=== PATIENT | male | born 1950 | race Caucasian/White ===

== ENCOUNTER 2020-08-12 10:54 | Outpatient (CLI) | payer MEDICARE, OTHER, SELFPAY ==
[2020-08-12 11:33] LABS: Alanine Aminotransferase 24 U/L (4-50); Albumin Level 4.3 g/dL (3.5-5.1); Alkaline Phosphatase 68 U/L (38-126); Anion Gap 5 mmol/L (8-16); Aspartate Amino Transferase 25 U/L (17-59); Bilirubin,Total 0.7 mg/dL (0.2-1.3); Blood Urea Nitrogen 17 mg/dL (9-20); Calcium 9.2 mg/dL (8.4-10.2); Carbon Dioxide 29 mmol/L (22-30); Chloride 102 mmol/L (98-107); Estimated Glomerular Filt Rate 60; Glucose 108 mg/dL (75-110); Magnesium 2.3 mg/dL (1.6-2.3); Potassium 4.5 mmol/L (3.4-5.0); Sodium 136 mmol/L (137-145)
== END 2020-08-12 10:55 | disposition home or self-care (01) ==
LOC: ANHLAB 10:58
PROVIDERS: PCP Family Medicine; Visit Provider Internal Medicine Cardiovascular Disease
DX: I48.0 Paroxysmal atrial fibrillation (principal)
CPT/HCPCS: 36415; 80053; 83735

== ENCOUNTER 2020-11-29 13:42 | Emergency (ER) | payer MEDICARE, OTHER, SELFPAY ==
--- NOTE | ~2020-11-29 | CT_ITS ---
EXAMINATION:CT chest w con DATE: 11/29/2020 16:38 INDICATION: Left hilar mass. Abnormal chest radiograph. COVID-19 positive. TECHNIQUE: Computed tomography (CT) of the chest was performed with 75 mL Omnipaque 350 intravenous c ontrast. Automated exposure control and iterative reconstruction technique were employed. The dose-le ngth product (DLP) was 407.80 mGy-cm. COMPARISON: Chest single view 11/29/2020, PET/CT 03/27/2008 FINDINGS: There are patchy groundglass and airspace opacities scattered in the lungs involving all lo bes. No pleural effusion. The heart size is normal. No pericardial effusion. There are coronary arter y calcifications. There is mild mediastinal lymphadenopathy, likely reactive. There is no abnormal le ft hilar mass. There is mild thoracic spondylosis. IMPRESSION: 1. Multifocal lung disease, consistent with COVID-19 pneumonia. Reviewed, dictated and finalized at location A. 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
--- NOTE | ~2020-11-29 | XR_ITS ---
XR chest 1V portable 11/29/2020 15:16 Indication: Chest palpitations. Hypertension. Covid. Procedure: AP portable chest Comparison: Comparison to multiple prior studies sequentially, with oldest reviewed study dated 02/2009. Findings: Heart size normal. There is masslike density overlying the left hilum. No edema, pleural ef fusion or pneumothorax. No acute osseous abnormality. Impression: 1: Masslike density overlying the left hilum which is new compared with prior study. This may be an i nfectious/inflammatory process, although neoplasm is not excluded. Consider correlation with CT chest with contrast. Reviewed, dictated and finalized at location A. CVOR Impression: 1: Masslike density overlying the left hilum which is new compared with prior s tudy. This may be an infectious/inflammatory process, although neoplasm is not excluded. Consider correlation with CT chest with contrast.
[2020-11-29 13:46] VITALS: BP 150/100; PULSE 110; RESP 97; TEMP 36.4; O2SAT 97
--- NOTE | 2020-11-29 13:51 | ECG_ITS ---
Measurements Intervals [place] Rate: 101 P: OR: 0 QRS: 21 QRSD: 95 T: 35 QT: 327 QTc: 424 Interpretive Statements ATRIAL FIBRILLATION WITH RAPID VENTRICULAR RESPONSE NONSPECIFIC ST & T-WAVE ABNORMALITY- INF/LAT LEADS BASELINE ARTIFACT- I, II, AVR, AVF, V5-V6 ABNORMAL ECG Electronically Signed On 11-29-2020 14:00:47 MUD GRINDER by Surya Lombardi D.O.
[2020-11-29 14:53] VITALS: BP 133/67; PULSE 93; RESP 18; O2SAT 97
--- NOTE | 2020-11-29 14:56 | ED.ARRPALP ---
HPI - Arrhythmia/Palpitations General Chief Complaint: Arrhythmia/Palpitations Stated Complaint: covid +, afib Time Seen by Provider: 11/29/20 14:55 Source: patient Mode of arrival: ambulatory Limitations: no limitations History of Present Illness HPI narrative: Patient complaining of irregular heart rate and palpitations, h/o afib. Patient states that he was diagnosed with Covid this past week. Patient states that he would get short of breath on exertion but currently denies being short of breath. Patient denies any chest pain, abdominal pain, nausea, vomiting, diarrhea, fever or chills. MD complaint: irregular heart beat and atrial fibrillation Related Data Home Medications Medication Instructions Recorded Confirmed pantoprazole 40 mg PO HS 11/10/19 08/12/20 tamsulosin 0.4 mg PO HS 11/10/19 08/12/20 amlodipine 5 mg tablet 5 mg PO DAILY 03/13/20 08/12/20 Allergies Allergy/AdvReac Type Severity Reaction Status Date / Time No Known Allergies Allergy Unknown Verified 08/12/20 10:04 Review of Systems Review of Systems: All systems reviewed & are unremarkable except as noted in HPI and below Constitutional: Constitutional: Denies body ache(s), Denies chills, Denies excessive sweating, Denies fatigue, Denies fever(s), Denies headache(s), Denies lethargy, Denies malaise, Denies weakness and Denies weight loss Eyes: Eyes: Denies blurry vision, Denies change in vision and Denies loss of vision ENT: Denies dizziness, Denies ear discharge, Denies headache(s), Denies lip swelling, Denies epistaxis, Denies nasal congestion, Denies neck pain, Denies throat swelling and Denies tongue swelling Cardiovascular: Cardiovascular: Denies chest pain, Denies chest pain at rest, Denies chest pain with activity, Denies diaphoresis, Denies rapid heart rate, Denies edema, Denies lightheadedness, Denies dyspnea and Denies dyspnea on exertion Respiratory: Respiratory: Denies chest congestion, Denies cough, Denies hemoptysis, Denies dyspnea and Denies dyspnea on exertion Gastrointestinal: Gastrointestinal: Denies abdominal pain, Denies melena, Denies hematochezia, Denies diarrhea, Denies nausea, Denies vomiting and Denies hematemesis Musculoskeletal: Musculoskeletal: Denies abnormal gait, Denies deformity, Denies joint swelling, Denies limited range of motion, Denies neck pain and Denies numbness Neurologic: Denies Abnormal speech present, Denies abnormal gait, Denies confusion, Denies dizziness, Denies headache(s), Denies focal weakness, Denies loss of vision, Denies numbness, Denies Other visual disturbances, Denies Sensory deficit (Neuro) and Denies weakness Psychiatric: Psychiatric: Denies confusion, Denies depression, Denies auditory hallucinations, Denies homicidal ideation and Denies suicidal ideation Endocrine: Endocrine: Denies cold intolerance, Denies excessive sweating, Denies fatigue, Denies heat intolerance and Denies palpitations Hematologic/Lymphatic: Hematologic/Lymphatic: Denies easy bleeding and Denies easy bruising Allergic/Immunologic: Allergic/Immunologic: Denies lip swelling, Denies throat swelling and Denies tongue swelling PMFSH Past Medical History Medical History Afib GERD (gastroesophageal reflux disease) HTN (hypertension) Hyperlipidemia Osteoarthritis Surgical History Surgical History History of cardiac cath History of hernia repair History of shoulder surgery Social History Social History Smoking status: Never smoker Gender identity (if verbalized by the patient): Male Exam Const: General: cooperative, healthy appearing, comfortable, no acute distress, well developed, alert and awake; No confusion Orientation/consciousness: oriented to person, oriented to place, oriented to time, patient oriented x3 and No confusion Limitations: no ramey
[2020-11-29 15:19] VITALS: BP 133/71; PULSE 110; RESP 17; O2SAT 96
[2020-11-29 15:21] LABS: Basophils Percent Auto 0.2 % (0.2-1.2); Hematocrit 45.9 % (42.0-52.0); Hemoglobin 15.8 g/dL (14.0-18.0); Immature Granulocyte Absolute 0.01 K/mm3 (0.00-0.031); Immature Granulocyte Percent A 0.2 % (0-0.5); Immature Platelet Fraction Pct 3.1 % (0.9-11.2); Lymphocytes Absolute Auto 0.72 K/mm3 (0.9-3.2); Lymphocytes Percent Auto 15.6 % (18.3-44.2); Mean Corpuscular HGB Conc 34.4 g/dl (32-36); Mean Corpuscular Hemoglobin 31.2 pg (26-34); Mean Corpuscular Volume 90.7 fl (80-100); Mean Platelet Volume 9.3 fl (7.4-10.4); Monocytes Absolute Auto 0.6 K/mm3 (0.1-0.6); Monocytes Percent Auto 12.3 % (2.6-8.5); Neutrophils Absolute Auto 3.3 K/mm3 (1.3-6.7); Neutrophils Percent Auto 71.7 % (45.5-73.1); Platelet Count Result 129 k/mm3 (150-375); Red Blood Count 5.06 M/mm3 (4.6-6.20); Red Cell Distribution Width 13.1 % (11.5-14.5); White Blood Count 4.6 K/mm3 (4.5-10.0)
[2020-11-29 15:29] LABS: INR 1.7; Prothrombin Time 20.6 Seconds (11.1-14.7)
[2020-11-29 15:30] LABS: Partial Thromboplastin Time 45.2 SECONDS (22.3-36.8)
[2020-11-29 15:35] LABS: Anion Gap 9 mmol/L (8-16); Blood Urea Nitrogen 17 mg/dL (9-20); Calcium 8.4 mg/dL (8.4-10.2); Carbon Dioxide 25 mmol/L (22-30); Chloride 102 mmol/L (98-107); Estimated CRCL calculation 58 ml/min; Estimated Glomerular Filt Rate 55; Glucose 144 mg/dL (75-110); Potassium 3.8 mmol/L (3.4-5.0); Sodium 136 mmol/L (137-145)
[2020-11-29 15:47] LABS: NT Pro B Type Natriuretic Pept 1300 PG/ML (5-100); Troponin I < 0.012 ng/mL (0.000-0.034)
[2020-11-29 16:50] VITALS: BP 136/88; PULSE 99; RESP 16; O2SAT 100
[2020-11-29] MEDS: dilTIAZem HCl INJ 25 MG/5 ML VIAL 10 MG IV PUSH (17:53)
[2020-11-29 18:50] VITALS: BP 142/88; PULSE 92; RESP 18; O2SAT 100
== END 2020-11-29 19:16 | disposition home or self-care (01) ==
PROVIDERS: Emergency Provider Emergency Medicine; PCP Family Medicine
DX: U07.1 COVID-19 (principal); J12.82 Pneumonia due to coronavirus disease 2019; I48.91 Unspecified atrial fibrillation; K21.9 Gastro-esophageal reflux disease without esophagitis; I10 Essential (primary) hypertension; E78.5 Hyperlipidemia, unspecified; M19.90 Unspecified osteoarthritis, unspecified site; R94.31 Abnormal electrocardiogram [ECG] [EKG]
CPT/HCPCS: 36415; 71045; 71260; 80048; 83880; 84443; 84484; 85025; 85055; 85610; 85730; 93005; 96374; 96375; 99284; J1100; Q9967

== ENCOUNTER 2022-08-06 09:38 | Outpatient (CLI) | payer MEDICARE, OTHER, SELFPAY ==
[2022-08-06 10:46] LABS: Hematocrit 40.5 % (42.0-52.0); Hemoglobin 13.1 g/dL (14.0-18.0); Immature Platelet Fraction Pct 2.4 % (0.9-11.2); Mean Corpuscular HGB Conc 32.3 g/dl (32-36); Mean Corpuscular Hemoglobin 30.9 pg (26-34); Mean Corpuscular Volume 95.5 fl (80-100); Mean Platelet Volume 9.2 fl (7.4-10.4); Platelet Count Result 155 k/mm3 (150-375); Red Blood Count 4.24 M/mm3 (4.6-6.20); Red Cell Distribution Width 13.7 % (11.5-14.5); White Blood Count 5.2 K/mm3 (4.5-10.0)
[2022-08-06 11:30] LABS: Iron 81 ug/dL (49-181)
[2022-08-06 11:39] LABS: Percent Iron Saturation 24 % (20-50)
== END 2022-08-06 09:39 | disposition home or self-care (01) ==
LOC: ANHLAB 09:41
PROVIDERS: PCP Family Medicine; Visit Provider Nurse Practitioner
DX: K62.5 Hemorrhage of anus and rectum (principal); K31.819 Angiodysplasia of stomach and duodenum without bleeding; R53.83 Other fatigue
CPT/HCPCS: 36415; 82728; 83540; 83550; 85027; 85055

== ENCOUNTER 2022-09-15 00:31 | Day surgery (SDC) | payer MEDICARE, OTHER, SELFPAY ==
[2022-09-07 14:26] VITALS: BMI 29.6
[2022-09-15] VITALS (7 sets, daily range): BP systolic 71–139; BP diastolic 42–66; PULSE 52–119; RESP 17–32; TEMP 36.1; O2SAT 96–100; BMI 28.9
[2022-09-15] MEDS: LACTATED RINGERS 1,000 ML 150 ML IV CONT (12:21)
--- NOTE | 2022-09-15 12:25 | P.PNAN_ITS ---
Anes - Initial Pre Proc Eval Procedure: Operation Date: 09/15/22 13:30 Proposed Procedures p Esophagogastroduodenoscopy & Colonoscopy - Jeronimo Dumont MD Date/Time: 09/15/22 12:25 Surgeon: Jeronimo Dumont MD Pre Op Diagnosis: GAVE, GERD, Rectal bleeding Patient Data Age: 71 Gender: M Height: 1.75 m Weight: 88.8 kg Last Vital Signs Temp 36.1 C L 09/15/22 12:00 Pulse 67 09/15/22 12:00 Resp 18 09/15/22 12:00 BP 139/55 L 09/15/22 12:00 Pulse Ox 100 09/15/22 12:00 O2 Del Method Room Air 09/15/22 12:00 Allergies Allergy/AdvReac Type Severity Reaction Status Date / Time No Known Allergies Allergy Unknown Verified 09/15/22 12:07 Home Medications Medication Instructions Recorded Confirmed Type pantoprazole 40 mg tablet,delayed 40 mg PO DAILY 11/10/19 09/15/22 History release tamsulosin 0.4 mg capsule 0.4 mg PO HS 11/10/19 09/15/22 History amlodipine 5 mg tablet 5 mg PO DAILY 03/13/20 09/15/22 History pravastatin 20 mg tablet 20 mg PO DAILY 02/03/21 09/15/22 History lisinopril 20 mg tablet 20 mg PO BID 09/07/22 09/15/22 History rivaroxaban 20 mg tablet (Xarelto) 20 mg PO QAM 09/07/22 09/15/22 History sotalol 80 mg tablet 80 mg PO BID 09/07/22 09/15/22 History Patient hx anesthesia problems: none Family hx anesthesia problems: none Results Review: All pre-operative results and documents have been reviewed as part of the pre- operative evaluation. [facility] Past Medical History Medical History Afib GAVE (gastric antral vascular ectasia) GERD (gastroesophageal reflux disease) GERD (gastroesophageal reflux disease) HTN (hypertension) Hx of adenomatous colonic polyps Hyperlipidemia Hypertension Obesity Osteoarthritis Paroxysmal A-fib Prostate cancer Surgical History Surgical History History of cardiac cath History of hernia repair History of shoulder surgery Social History Social History Smoking status: Never smoker Alcohol intake: former Substance use: never Substance use type: does not use Living arrangements: with family Gender identity (if verbalized by the patient): Male Spiritual care concerns: No Anes - Eval Final PreProcedure Day of Procedure 09/15/22 12:25 Patient weight: overweight Heart: regular rate and rhythm Lungs: clear to auscultation Airway: Mallampati scale class II Neurological: alert and oriented Last oral intake: >/= 8 hours ASA classification: III Emergent: no Anesthetic plan: proceed Anesthesia type and monitoring: general GIVS and standard monitoring Results Review: All pre-operative results and documents have been reviewed as part of the pre-operative evaluation. Informed Consent: The patient's anesthetic plan and its attendant risks and benefits were discussed with the patient/family/POA. Questions were solicited and answers provided to the satisfaction of the patient/family/POA.
--- NOTE | 2022-09-15 13:05 | PM.HPGS ---
History of Present Illness History of Present Illness Consent: Risks, benefits, and alternatives have been discussed and questions answered. Patient agrees to proceed with procedure. Chief complaint: GAVE, GERD, Rectal bleeding Narrative: Andre Mas is a 71 year old male Presents for colonoscopy and EGD. Patient is legally blind. Patient has a history of prostate carcinoma status post treatment with radiation therapy. He has noticed bright red blood per rectum intermittently this year. Patient does have a prior history of colonoscopy that showed colon polyps. Previously followed by Dr. Viri ivy. Patient was found to be anemic in 2018. At that time he also had EGD that revealed gastric antral vascular ectasias that were cauterized. Patient presents today for follow-up because of rectal bleeding. Review of Systems Review of Systems: Review of systems noncontributory. [facility] Past Medical History Medical History Afib GAVE (gastric antral vascular ectasia) GERD (gastroesophageal reflux disease) GERD (gastroesophageal reflux disease) HTN (hypertension) Hx of adenomatous colonic polyps Hyperlipidemia Hypertension Obesity Osteoarthritis Paroxysmal A-fib Prostate cancer Surgical History Surgical History History of cardiac cath History of hernia repair History of shoulder surgery Social History Social History Smoking status: Never smoker Alcohol intake: former Substance use: never Substance use type: does not use Living arrangements: with family Gender identity (if verbalized by the patient): Male Spiritual care concerns: No Meds Home Medications and Allergies Home Medications Medication Instructions Recorded Confirmed Type pantoprazole 40 mg tablet,delayed 40 mg PO DAILY 11/10/19 09/15/22 History release tamsulosin 0.4 mg capsule 0.4 mg PO HS 11/10/19 09/15/22 History amlodipine 5 mg tablet 5 mg PO DAILY 03/13/20 09/15/22 History pravastatin 20 mg tablet 20 mg PO DAILY 02/03/21 09/15/22 History lisinopril 20 mg tablet 20 mg PO BID 09/07/22 09/15/22 History rivaroxaban 20 mg tablet (Xarelto) 20 mg PO QAM 09/07/22 09/15/22 History sotalol 80 mg tablet 80 mg PO BID 09/07/22 09/15/22 History Allergies Allergy/AdvReac Type Severity Reaction Status Date / Time No Known Allergies Allergy Unknown Verified 09/15/22 12:07 Vital Signs Vital Signs - 24 hr 09/15/22 12:00 Temperature 97.0 F L Pulse Rate 67 Respiratory Rate 18 Blood Pressure 139/55 L Pulse Oximetry 100 Oxygen Delivery Room Air Exam Narrative: Physical exam reveals patient be alert. Vital signs stable. HEENT exam reveals poor vision. Lungs are clear. Heart without murmur. Abdomen bowel sounds present soft nontender with no organomegaly. Digital external rectal exam is normal. Assessment and Plan Assessment and plan (1) Rectal bleeding: Code(s): K62.5 - Hemorrhage of anus and rectum Status: Acute Assessment and Plan: Rectal bleeding may be aggravated by anticoagulation. Patient known to have internal hemorrhoids. Previous radiation therapy for prostate potentially could cause proctitis. Plan is for colonoscopy to of assess more thoroughly. (2) GERD (gastroesophageal reflux disease): Code(s): K21.9 - Gastro-esophageal reflux disease without esophagitis Status: Acute Assessment and Plan: Patient is stable on current therapy currently on pantoprazole 40mg p.o. daily EGD requested will be performed. (3) GAVE (gastric antral vascular ectasia): Code(s): K31.819 - Angiodysplasia of stomach and duodenum without bleeding Status: Acute Assessment and Plan: Patient has a history of GA Bhanu. Etiology for this is unclear. Potential of bleeding identified particularly while antico
--- NOTE | 2022-09-15 13:32 | SUR.OPER ---
EGD ENDED 1326, COLONOSCOPY STARTED 1330
[2022-09-15 14:12] LABS: Glucose Point of Care 108 mg/dl (65-105)
--- NOTE | 2022-09-15 14:13 | ECG_ITS ---
Measurements Intervals [place] Rate: 119 P: UT: 0 QRS: 50 QRSD: 102 T: 28 QT: 347 QTc: 488 Interpretive Statements ATRIAL FIBRILLATION WITH RAPID VENTRICULAR RESPONSE NONSPECIFIC ST & T-WAVE ABNORMALITY ABNORMAL RHYTHM ECG INTERPRETATION BASED ON A DEFAULT AGE OF 40 YEARS COMPARED TO ECG 11/29/2020 13:58:19 NO SIGNIFICANT CHANGES Electronically Signed On 09-16-2022 12:55:33 CDT by Deisy Palumbo M.D.
--- NOTE | 2022-09-15 14:48 | SUR.PHASEII ---
At 1356 patient reporting chest pain and feeling tired, blood pressure 71/43, heart rhythm changed to atrial fib on ECG, restarted IV fluid and repositioned, Blood sugar 108, MD Álvarez notified verbal order to start IV fluid and O2 4L nasal canula. At 1412 Dr. Álvarez administered 100mcg Phenylephrine, 1414 20 mg Esmolol, 1413 30mg Esmolol, 1416 50mg Esmolol, 2mg Metoprolol, 1423 3 mg Metoprolol, and at 1430 10 mg Labetalol. Patient reports no chest pain and feeling much better, blood pressure improved to 122/66, heart rate 108 in stable atrial fib, O2 100% on room air, respirations 23 per min. After continuing to monitor patient with no new symptoms Dr. Álvarez returned to reassess patient and per order patient stable enough for discharge. Patient instructed to follow up with his grab setter and to go to nearest emergency department immediately if any new symptoms develop. Patient and family member both verbalized understanding. At 1505 the IV discontinued and patient discharged without difficulty.
--- NOTE | 2022-09-15 14:56 | WPDANESPN ---
Anes - Prog Note Post-Op Date/Time: 09/15/22 14:56 Cardiovascular status: other (remains in A-fib after converting from SR during case. HR 95-105 with BP 110s/60s) Respiratory status: normal (no SOB) Airway patency: baseline Mental status: baseline Vital Signs: Last Vital Signs Temp 36.1 C L 09/15/22 12:00 Pulse 108 H 09/15/22 14:39 Resp 23 H 09/15/22 14:39 BP 122/66 09/15/22 14:39 Pulse Ox 100 09/15/22 14:39 O2 Del Method Room Air 09/15/22 14:39 Pain Score (VAS): 0/10, no CP, describes mild abdominal/gas feeling I/O: Intake & Output 09/14/22 09/15/22 09/15/22 23:59 07:59 15:59 Intake Total 0 Balance 0 09/15/22 14:06 POC Capillary Glucose 108 H Patient Feedback: Patient satisfied with anesthetic care. I attended the patient in GI recovery for approximately 30 min managing A-fib and BP. Patient has known hx of A-fib. He is asymptomatic and I educated patient and on symptoms to beware of tonight including SOB, CP, Dizziness. Patient and were comfortable with plan to D/C home and resume home meds.
== END 2022-09-15 15:05 | disposition home or self-care (01) ==
PROVIDERS: PCP Family Medicine; Visit Provider Internal Medicine Gastroenterology
PROC: 0DJ08ZZ Inspection of Upper Intestinal Tract, Via Natural or Artificial Opening Endoscopic (ICD-10-PCS; CPT 43235; principal; 2022-09-15 13:30)
DX: K62.5 Hemorrhage of anus and rectum (principal); D12.5 Benign neoplasm of sigmoid colon; K64.8 Other hemorrhoids; K62.89 Other specified diseases of anus and rectum; Z79.01 Long term (current) use of anticoagulants; K21.9 Gastro-esophageal reflux disease without esophagitis; I10 Essential (primary) hypertension; E78.5 Hyperlipidemia, unspecified; I48.0 Paroxysmal atrial fibrillation; Z85.46 Personal history of malignant neoplasm of prostate; E66.9 Obesity, unspecified; Z68.28 Body mass index [BMI] 28.0-28.9, adult
CPT/HCPCS: 45385; 43235; 82948; 88305; 93005; J2001; J2704; J7120

== ENCOUNTER 2024-03-22 01:16 | Day surgery (SDC) | payer MEDICARE, OTHER, SELFPAY ==
[2024-03-15 15:06] VITALS: BMI 30.6
--- NOTE | 2024-03-15 15:17 | PC.NURSE ---
Report to the Outpatient Waiting Room, entrance under the green pavilion located off [facility], at time __0730 on date __03/22/24 . Planned Procedure Time: ___929 . Time changes happen often and if your time is changed the preop area will call you the afternoon before. - You and your visitor will be asked to self-screen and do not enter if you have any COVID symptoms. - A mask is optional within the hospital at this time. Patients may have clear liquids (water, carbonated beverages, clear teas, apple juice) until 3 hours prior to surgery (0630 AM) with a maximum of 20 ounces. - No food from midnight until time of surgery - Infants may have breast milk until 4 hours before surgery, infant formula 6 hours prior to surgery. - Children will be allowed to drink immediately following surgery. If applicable, please bring a bottle or sippy cup to assist with drinking. Juice, water, soda, and popsicles are readily available. For infants on formula, please bring formula the day of surgery. Pacifiers are allowed. Take the following medications with a SIP of water the morning of surgery: _AMLODIPINE, SOTALOL__ DO NOT STOP ANY OF YOUR OTHER PRESCRIPTION MEDICATIONS PRIOR TO SURGERY ?EXCEPT THE FOLLOWING Medications to discontinue per DR. ALARCON - _XARELTO 2 DAYS PRIOR TO SURGERY, Date to take last dose 03/19/24_ Please no make-up, nail turkmen, hairspray, perfume, deodorant, or body powder the day of surgery. No jewelry (including any body piercings) or valuables the day of surgery, leave them at home. Please take a shower or bath the night before, or the morning of, surgery with an antibacterial soap. Wear comfortable, loose fitting clothing. Children are encouraged to wear pajamas. - Jewelry must be removed prior to entering the operating room. Rings and piercings that are not removed may be cut off. - The hospital will not accept responsibility for valuables. - Please leave all valuables, including medications, at home the day of surgery. If you are going home after surgery, a licensed personal driver must drive you home. - NO public transportation without another adult if you receive anesthesia. - We recommend that an adult stay with you for 24 hours following discharge. - We also recommend that you do not drive, make important decision, drink alcoholic beverages, or take any drugs that were not prescribed by your health care provider for at least 24 hours after your discharge time. For Pediatric surgeries, we recommend two adults accompany the child home. Follow any additional instructions given to you from your surgeon. If you or anyone in your household have experienced Covid symptoms in the past week, please notify your surgeon or the nurse liaison at the phone number below for possible testing. Telephone instructions given to ____PT and asked if any additional questions and then verbalized understanding. Patient advised to call surgeon office or pre surgery nurse liaison [phone] if any additional questions.
[2024-03-22] VITALS (7 sets, daily range): BP systolic 124–179; BP diastolic 51–73; PULSE 48–55; RESP 14–20; TEMP 36.4; O2SAT 99–100
[2024-03-22] MEDS: ACETAMINOPHEN 500 MG TABLET 1000 MG PO (08:15)
[2024-03-22] MEDS: LACTATED RINGERS 1,000 ML 30 ML IV CONT ×2 (08:15→11:13)
[2024-03-22] MEDS: KETOROLAC 15 MG/ML VIAL (*BKC) IV PUSH (08:16)
--- NOTE | 2024-03-22 08:19 | WPDHPUPDATE1 ---
History and Physical Update Update Date/Time: 03/22/24 08:19 History and Physical has been reviewed, including an updated exam of the patient. There are NO changes in the patient's condition. Risks, benefits, and alternatives have been discussed and questions answered. Patient agrees to proceed with procedure.
--- NOTE | 2024-03-22 08:50 | WPDANESEPPF ---
Anes - Initial Pre Proc Eval Procedure: Operation Date: 03/22/24 09:30 Proposed Procedures p Open Left Inguinal Hernia Repair with Mesh - Andre Ruvalcaba MD Date/Time: 03/22/24 08:50 Surgeon: Andre Ruvalcaba MD Pre Op Diagnosis: Left Inguinal Hernia Patient Data Age: 73 Gender: M Height: 1.75 m Weight: 91.7 kg Last Vital Signs Temp 36.4 C 03/22/24 07:42 Pulse 54 L 03/22/24 07:42 Resp 18 03/22/24 07:42 BP 136/51 L 03/22/24 07:42 Pulse Ox 100 03/22/24 07:42 O2 Del Method Room Air 03/22/24 07:42 Allergies Allergy/AdvReac Type Severity Reaction Status Date / Time No Known Allergies Allergy Unknown Verified 03/22/24 07:54 Home Medications Medication Instructions Recorded Confirmed Type tamsulosin 0.4 mg capsule 0.4 mg PO HS 11/10/19 03/22/24 History pravastatin 20 mg tablet 20 mg PO DAILY #90 tabs 04/23/23 03/22/24 Rx rivaroxaban 20 mg tablet (Xarelto) See Rx Instructions .Route 06/18/23 03/22/24 Rx .COMPLEX #90 tabs lisinopril 20 mg tablet See Rx Instructions .Route 08/02/23 03/22/24 Rx .COMPLEX #180 tabs amlodipine 5 mg tablet 5 mg PO DAILY #90 tabs 02/02/24 03/22/24 Rx sotalol 120 mg tablet See Rx Instructions .Route 03/01/24 03/22/24 Rx .COMPLEX #60 tabs pantoprazole 40 mg tablet,delayed 40 mg PO DAILY #90 tabs 03/09/24 03/22/24 Rx release Patient hx anesthesia problems: none Family hx anesthesia problems: none Results Review: All pre-operative results and documents have been reviewed as part of the pre-operative evaluation. [facility] Past Medical History Medical History Afib GAVE (gastric antral vascular ectasia) GERD (gastroesophageal reflux disease) Hx of adenomatous colonic polyps Hypertension Obesity Osteoarthritis Pancytopenia Paroxysmal A-fib Personal history of prostate cancer Pneumonia due to 2019-nCoV Pure hypercholesterolemia, unspecified Surgical History Surgical History History of cardiac cath History of hernia repair History of shoulder surgery Social History Social History Smoking status: Never smoker Second hand tobacco smoke exposure: No Alcohol intake: former Alcohol use details: SOCIAL 1-2 DRINKS/MONTH, QUIT 2020~ Substance use: never Substance use type: does not use Do You Feel Safe in your Home?: Yes Lack of Transportation: No Lack of Food: Never True Current Housing: I Have Housing Concerned About Future Housing: No Difficulty Paying Gas/Electric Bills: No Difficulty Paying for Meds: No Currently Unemployed: No Education: Associate Degree Difficulty w/ Childcare or Family Care: No Living arrangements: with family Occupation/Education: retired Gender identity (if verbalized by the patient): Male Sexual Orientation (if Verbalized by the Patient): Straight or Heterosexual Spiritual care concerns: No Anes - Eval Final PreProcedure Day of Procedure 03/22/24 08:50 Patient weight: overweight Heart: regular rate and rhythm Lungs: clear to auscultation Airway: Mallampati scale class II Neurological: alert and oriented Last oral intake: >/= 8 hours ASA classification: III Emergent: no Anesthetic plan: proceed Anesthesia type and monitoring: general LMA and standard monitoring Results Review: All pre-operative results and documents have been reviewed as part of the pre-operative evaluation. Informed Consent: The patient's anesthetic plan and its attendant risks and benefits were discussed with the patient/family/POA. Questions were solicited and answers provided to the satisfaction of the patient/family/POA.
[2024-03-22] MEDS: ceFAZolin 2 GM/D5W 50 ML 2 GM/50 ML BAG IVPB (09:50)
--- NOTE | 2024-03-22 11:23 | P.OP_ITS ---
Procedure Note - Detailed Date of Procedure 03/22/24 Pre-op Diagnosis Left Inguinal Hernia Post-op Diagnosis Same Procedure Performed Repair reducible left inguinal hernia with mesh Surgeon Andre Ruvalcaba MD Welder Assembler MERLYN Samaniego Anesthesia General (LMA) and Local (0.5% Marcaine with epinephrine) Indications Patient has had at least 7-8 months of a left inguinal bulge. He has a tendency to constipation and this particularly hurts during bowel movements or before bowel movements. He was found to have prostate cancer and underwent radiation therapy for this disease. It was fairly soon after the radiation therapy that he started noticing the left groin bulge. I saw him in the office and he does have a reducible left inguinal hernia. Due to his history of prostate radiation he is taken to surgery now for open repair left inguinal hernia. Findings Patient had a moderate-sized indirect left inguinal hernia. Description of Procedure Patient was taken to surgery and anesthesia was introduced. The lower abdomen groin and genitalia were prepped and draped. The proposed incision was marked on the skin. Local anesthetic was infiltrated into the area of the anticipated incision and in the deeper subcutaneous tissues. Ileoinguinal nerve block was also administered with local. Incision was made and dissection was carried down through Renard's fascia and eventually to the external oblique aponeurosis. The external oblique was exposed as was the external ring. Additional local was infiltrated deep to the aponeurosis in the area of the spermatic cord and ingui nal canal contents. The aponeurosis was opened laterally and extended medially through the external ring. The leaves the aponeurosis were carefully dissected off the inguinal canal contents. Care was taken to not disturb the ilioinguinal nerve which was left attached to the cord. I then dissected around the cord medially at the pubic tubercle. A Morven drain was placed around the cord here for traction. I then dissected connective tissues underneath the cord so that the cord was mobilized from medial to lateral. There was a sizable lipoma of the cord. This was dissected out carefully and completely removed. This was discarded. No significant bleeding occurred. I then dissected anteromedially and found the hernia sac. I dissected the hernia sac from the remainder of the spermatic cord structures and then dissected it back to a high dissection. It was dunked into the retroperitoneum. An extra-large PerFix Light plug was chosen. This was placed in the defect. The edges of plug were sutured to the transversalis fascia with interrupted 3-0 Vicryl suture. I then cut the patch to the appropriate length. This was laid over the inguinal canal floor as well as the repaired hernia defect. The leaves extended beyond the cord. I laid the cord then over the patch. All looked good. The external oblique aponeurosis was then closed with interrupted 3-0 Vicryl suture. Renard's fascia was closed with interrupted 3-0 Vicryl suture. Some subcuticular interrupted 4-0 Vicryl suture was then placed. Finally the skin was closed with a running 4-0 Monocryl skin suture. The wound was dressed with Exofin surgical adhesive. Patient was then awakened and taken to recovery in good condition. Sponge needle counts were correct x2. Implants Extra-large PerFix Light plug and patch Estimated Blood Loss -5 Drains No Packing No Pathology None sent Complications No immediate complications Condition Stable Disposition PACU [facility] Billing Surgery - Charge Forward: Surgery Billing (Repair left inguinal hernia with mesh: CPT code 90315)
== END 2024-03-22 13:15 | disposition home or self-care (01) ==
PROVIDERS: PCP Family Medicine; Visit Provider Surgery
PROC: (CPT 49505; principal; 2024-03-22 09:30)
DX: K40.90 Unilateral inguinal hernia, without obstruction or gangrene, not specified as recurrent (principal); I48.0 Paroxysmal atrial fibrillation; E78.00 Pure hypercholesterolemia, unspecified; I10 Essential (primary) hypertension; K21.9 Gastro-esophageal reflux disease without esophagitis; K31.819 Angiodysplasia of stomach and duodenum without bleeding; Z79.01 Long term (current) use of anticoagulants; Z85.46 Personal history of malignant neoplasm of prostate; Z92.3 Personal history of irradiation
CPT/HCPCS: 49505; A9270; C1781; J0690; J1100; J1596; J1885; J2250; J2371; J2405; J2704; J3010; J7120

== ENCOUNTER 2024-03-26 02:27 | Emergency (ER) | payer MEDICARE, OTHER, SELFPAY ==
--- NOTE | ~2024-03-26 | XR_ITS ---
EXAMINATION: XR chest 1V portable DATE: 03/26/2024 02:57 INDICATION: Palpitations. TECHNIQUE: A single frontal view of the chest was obtained. COMPARISON: Chest single view 11/29/2020, chest CT 11/29/2020 FINDINGS: There is no pneumonia, pleural effusion, or pneumothorax. The heart size is normal. IMPRESSION: 1. No acute cardiopulmonary disease. Reviewed, dictated and finalized at location A.
--- NOTE | 2024-03-26 02:38 | ECG_ITS ---
SEE SCANNED COPY FOR CONFIRMED REPORT MTDD
[2024-03-26 02:46] VITALS: PULSE 106
[2024-03-26 02:55] VITALS: BP 155/73; PULSE 105; RESP 13; O2SAT 97
[2024-03-26 02:56] VITALS: O2SAT 97
[2024-03-26 02:57] LABS: Appearance Urine Clear (Clear); Bilirubin Urine Negative (Negative); Blood Urine Negative (Negative); Color Urine Yellow (Yellow); Glucose Urine UA Negative (Negative); Ketones Urine Negative (Negative); Leukocyte Esterase Ur Negative LEU/UL (Negative); Nitrate Urine Negative (Negative); Protein Urine Negative (Negative); Specific Grav Ur 1.006 (1.001-1.035); Urobilinogen Urine 0.2 mg/dL (<2.0); pH Urine 7.5 (5.0-9.0)
[2024-03-26 03:07] LABS: Alanine Aminotransferase 12 U/L (6-50); Albumin Level 4.1 g/dL (3.5-5.1); Alkaline Phosphatase 62 U/L (38-126); Anion Gap 7 mmol/L (4-12); Aspartate Amino Transferase 20 U/L (17-59); Bilirubin,Total 0.5 mg/dL (0.2-1.3); Blood Urea Nitrogen 13 mg/dL (9-20); Calcium 9.1 mg/dL (8.4-10.2); Carbon Dioxide 27 mmol/L (22-30); Chloride 107 mmol/L (98-107); Estimated CRCL calculation 61 ml/min; Estimated Glomerular Filt Rate > 60; Glucose 117 mg/dL (65-110); Potassium 3.9 mmol/L (3.4-5.0); Sodium 141 mmol/L (137-145)
[2024-03-26 03:08] LABS: INR 0.9; Partial Thromboplastin Time 29.9 Seconds (22.3-36.8); Prothrombin Time 12.6 Seconds (11.1-14.7)
[2024-03-26 03:16] LABS: Add Urine Microscopic? NO
[2024-03-26 03:18] LABS: NT Pro B Type Natriuretic Pept 149 pg/mL (19.9-100); Troponin I < 0.012 ng/mL (0.000-0.034)
[2024-03-26 03:21] LABS: Basophils Percent Auto 0.3 % (0.2-1.2); Eosinophils Absolute Auto 0.1 K/mm3 (0-0.3); Eosinophils Percent Auto 1.5 % (0-4.4); Hematocrit 39.6 % (42.0-52.0); Hemoglobin 12.7 g/dL (14.0-18.0); Immature Granulocyte Absolute 0.01 K/mm3 (0.00-0.031); Immature Granulocyte Percent A 0.3 % (0-0.5); Immature Platelet Fraction Pct 3.5 % (0.9-11.2); Lymphocytes Absolute Auto 1.07 K/mm3 (0.9-3.2); Lymphocytes Percent Auto 27.4 % (18.3-44.2); Mean Corpuscular HGB Conc 32.1 g/dl (32-36); Mean Corpuscular Hemoglobin 30.3 pg (26-34); Mean Corpuscular Volume 94.5 fl (80-100); Mean Platelet Volume 9.9 fl (7.4-10.4); Monocytes Absolute Auto 0.5 K/mm3 (0.1-0.6); Monocytes Percent Auto 11.8 % (2.6-8.5); Neutrophils Absolute Auto 2.3 K/mm3 (1.3-6.7); Neutrophils Percent Auto 58.7 % (45.5-73.1); Platelet Count Result 144 k/mm3 (150-375); Red Blood Count 4.19 M/mm3 (4.6-6.20); Red Cell Distribution Width 14.8 % (11.5-14.5); White Blood Count 3.9 K/mm3 (4.5-10.0)
[2024-03-26 04:05] VITALS: BP 132/77; PULSE 83; RESP 16; O2SAT 95
--- NOTE | 2024-03-26 04:23 | ED.GENADULT ---
HPI - General Adult General Chief complaint: Arrhythmia/Palpitations Stated complaint: a-fib? Time Seen by Provider: 03/26/24 02:46 History of Present Illness HPI narrative: Patient 73-year-old gentleman who presents emergency department with chief complaint of atrial fibrillation. Patient reports he has prior history of AFib reports he is normally on anticoagulant and also on sotalol patient reports that his anticoagulant was held from a surgery on the the patient states he is to start back on his anticoagulant on Wednesday patient states that today he felt as though his heart rate started to become irregular reports that he has had no chest pain reports no shortness of breath reports no rapid heart rate. The patient states that he normally would just take a additional dose of sotalol and he would convert that way but reports he was concerned since he was currently not on his anticoagulant. Related Data Home Medications Medication Instructions Recorded Confirmed tamsulosin 0.4 mg capsule 0.4 mg PO HS 11/10/19 03/22/24 Allergies Allergy/AdvReac Type Severity Reaction Status Date / Time No Known Allergies Allergy Unknown Verified 03/26/24 02:31 Review of Systems Review of Systems: A 10 system review of systems was completed on the patient and is negative except for what is stated in the HPI. Nursing and ancillary documentation was reviewed. [facility] Past Medical History Medical History Afib GAVE (gastric antral vascular ectasia) GERD (gastroesophageal reflux disease) Hx of adenomatous colonic polyps Hypertension Obesity Osteoarthritis Pancytopenia Paroxysmal A-fib Personal history of prostate cancer Pneumonia due to 2019-nCoV Pure hypercholesterolemia, unspecified Surgical History Surgical History History of cardiac cath History of hernia repair History of shoulder surgery Social History Social History Smoking status: Never smoker Second hand tobacco smoke exposure: No Alcohol intake: former Alcohol use details: SOCIAL 1-2 DRINKS/MONTH, QUIT 2020~ Substance use: never Substance use type: does not use Do You Feel Safe in your Home?: Yes Lack of Transportation: No Lack of Food: Never True Current Housing: I Have Housing Concerned About Future Housing: No Difficulty Paying Gas/Electric Bills: No Difficulty Paying for Meds: No Currently Unemployed: No Education: Associate Degree Difficulty w/ Childcare or Family Care: No Living arrangements: with family Occupation/Education: retired Gender identity (if verbalized by the patient): Male Sexual Orientation (if Verbalized by the Patient): Straight or Heterosexual Spiritual care concerns: No Exam Narrative: GENERAL: Well-appearing, well-nourished, and in no acute distress. HEAD: Normocephalic, atraumatic. EYES: PERRLA and EOMI. ENT: Nares clear, no rhinorrhea or epistaxis. Mucous membranes moist. NECK: Supple. CHEST: Clear to auscultation. No respiratory distress. HEART: Irregular rate and rhythm. No murmur heard. Normal peripheral pulses. ABDOMEN: Soft, nontender, nondistended, normal active bowel sounds. EXTREMITIES: Normal range of motion. No edema. SKIN: Warm, dry, no rash. NEURO: No focal deficits. Alert and oriented x3. PSYCH: Normal mood and affect. Course Vital Signs Vital signs: Vital Signs Pulse Rate 106 H 03/26/24 02:46 Pulse Rate 83 03/26/24 04:05 Respiratory Rate 16 03/26/24 04:05 Blood Pressure 132/77 03/26/24 04:05 Pulse Oximetry 95 03/26/24 04:05 Oxygen Delivery Room Air 03/26/24 02:56 Medical Decision Making MDM Narrative Medical decision making narrative: Differential diagnosis includes electrolyte abnormality, dysrhythmia, ACS Laboratory studies were obtai
[2024-03-26 04:46] VITALS: PULSE 91; RESP 16; O2SAT 100
== END 2024-03-26 04:47 | disposition home or self-care (01) ==
PROVIDERS: Emergency Provider Emergency Medicine; PCP Family Medicine
DX: I48.0 Paroxysmal atrial fibrillation (principal); I10 Essential (primary) hypertension; E66.9 Obesity, unspecified; Z68.30 Body mass index [BMI] 30.0-30.9, adult; E78.00 Pure hypercholesterolemia, unspecified; K21.9 Gastro-esophageal reflux disease without esophagitis; K31.819 Angiodysplasia of stomach and duodenum without bleeding; M19.90 Unspecified osteoarthritis, unspecified site; Z85.46 Personal history of malignant neoplasm of prostate; Z87.01 Personal history of pneumonia (recurrent); Z86.16 Personal history of COVID-19; Z86.010 Personal history of colon polyps; Z79.01 Long term (current) use of anticoagulants; Z79.899 Other long term (current) drug therapy
CPT/HCPCS: 36415; 71045; 80053; 81003; 83735; 83880; 84484; 85025; 85055; 85610; 85730; 93005; 99284

== ENCOUNTER 2024-04-28 06:56 | Outpatient (CLI) | payer MEDICARE, OTHER, SELFPAY ==
[2024-04-28 07:37] LABS: Cholesterol 137 mg/dL (0-200); HDL Direct 41 mg/dL; Triglycerides 61 mg/dL (<150)
[2024-04-28 07:48] LABS: LDL Cholesterol Direct 87 mg/dL
[2024-04-28 11:05] LABS: Hemoglobin A1C 5.5 % (<5.7)
== END 2024-04-28 06:57 | disposition home or self-care (01) ==
PROVIDERS: PCP Family Medicine; Visit Provider Family Medicine
DX: E78.00 Pure hypercholesterolemia, unspecified (principal); R73.09 Other abnormal glucose
CPT/HCPCS: 36415; 80061; 83036

== ENCOUNTER 2024-07-04 09:01 | Outpatient (CLI) | payer MEDICARE, OTHER, SELFPAY ==
--- NOTE | ~2024-07-04 | NM_ITS ---
EXAMINATION: NM sina stress w perfusion DATE: 07/04/2024 11:20 INDICATION: Chest pain, unspecified. TECHNIQUE: Rest images were obtained following intravenous administration of 10.2 mCi Tc99m tetrofosm in (Myoview). The patient was infused intravenously with Lexiscan (regadenoson). Then, 31.4 mCi Tc99m tetrofosmin (Myoview) was administered intravenously, and supine and prone stress images were obtain ed. Data was reconstructed into short axis and horizontal and vertical long axis SPECT images. Gated SPECT images were also obtained. COMPARISON: Myocardial perfusion imaging 01/26/2017 FINDINGS: There is a small, mild, fixed perfusion defect involving mid inferolateral segment of left ventricle, consistent with infarct. No reversible component to suggest ischemia. There is no segment al wall motion abnormality. Left ventricular ejection fraction measures >70%. IMPRESSION: 1. Small area of mild infarct involving mid inferolateral segment of left ventricle. 2. Normal left ventricular ejection fraction measuring >70%. Reviewed, dictated and finalized at location A. IMPRESSION: 1. Small area of mild infarct involving mid inferolateral segment of left ventr icle. 2. Normal left ventricular ejection fraction measuring >70%.
--- NOTE | 2024-07-04 09:07 | EST_ITS ---
Patient Info Name: Andre Mas Age: 73 years : 1950 Gender: Male Ht: 69 in Wt: 201 lbs BSA: 2.13 m2 HR: 47 bpm BP: 184 / 70 mmHg Heart Rhythm: Sinus Rhythm Exam Date: 07/04/2024 9:52 AM Exam Location: Echo Lab Patient Status: Outpatient Admit Date: 07/04/2024 Staff Ordering Physician: Surya Lombardi DO Attending Provider: Surya Lombardi DO Exercise Technologist: Florinda Sadler CT Exercise Physician: Surya Lombardi DO Exam Type: CA stress sina w NM Study Info Indications R07.89 - Other chest pain A regadenoson stress test was performed. Summary 1. 1. Negative lexiscan stress test for ischemic ST changes by ECG criteria. 2. 2. Baseline hypertension. 3. 3. Nuclear scan to follow and will be reported separately. Please correlate with it. 4. 4. Patient informed of the above results. Protocol: Lexiscan Stress ECG Details Stage: REST Duration (min): 2 min : 25 sec HR (bpm): 48 SBP (mmHg): 185 DBP (mmHg): 70 Stage: REST Duration (min): 9 min : 58 sec HR (bpm): 47 SBP (mmHg): 185 DBP (mmHg): 70 Stage: STAGE 1 Duration (min): 1 min : 0 sec HR (bpm): 61 SBP (mmHg): 185 DBP (mmHg): 70 Stage: RECOVERY Duration (min): 1 min : 0 sec HR (bpm): 70 SBP (mmHg): 161 DBP (mmHg): 58 Stage: RECOVERY Duration (min): 2 min : 0 sec HR (bpm): 65 SBP (mmHg): 161 DBP (mmHg): 58 Stage: RECOVERY Duration (min): 3 min : 0 sec HR (bpm): 63 SBP (mmHg): 161 DBP (mmHg): 58 Stage: RECOVERY Duration (min): 3 min : 25 sec HR (bpm): 62 SBP (mmHg): 153 DBP (mmHg): 69 Rest HR: 47 bpm Peak HR: 71 bpm Rest Sys BP: 185 mmHg Peak Sys BP: 161 mmHg Max Pred HR: 149 bpm % Max Pred HR: 48 % Target HR: 127 bpm Max RPP: 11,431 bpm*mmHg Termination Reason: Completed protocol Cardiac Symptoms: Shortness of breath Total Time: 1 min : 0 sec Rest Zapata BP: 70 mmHg Peak Zapata BP: 58 mmHg Total Dose: 0.4 mg Resting ECG Sinus bradycardia. Stress ECG No ST changes. Arrhythmias None. Report Signatures
== END 2024-07-04 09:02 | disposition home or self-care (01) ==
PROVIDERS: PCP Family Medicine; Visit Provider Internal Medicine Cardiovascular Disease
DX: R07.89 Other chest pain (principal); I10 Essential (primary) hypertension
CPT/HCPCS: 78452; 93017; A9502; J2785

== ENCOUNTER 2024-12-31 08:34 | Emergency (ER) | payer MEDICARE, OTHER, SELFPAY ==
--- OUTSIDE RECORDS SUMMARY | 2024-12-31 08:36 | XMS_ITS | Clinical Summary ---
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 Gender Identity Not on file Sexual Orientation Not on file Plan of Treatment Health Maintenance Due Date Last Done Comments Colorectal Cancer Screening Colonoscopy (10 Years) 1952 Hepatitis C 1970 DTaP, Tdap and Td Vaccines ( 1 - Tdap) 1971 Zoster Vaccines (1 of 2) 2002 Annual Medicare Wellness Visit 2017 Pneumococcal Vaccine: 65+ Ye ars (2 of 2 - PPSV23 or PCV20) 04/07/2020 04/07/2019 COVID-19 Vaccine (2023-2 5 season) 2024 Influenza Adult (#1) 2024 RSV Immunization or 60+ Years (1 - 1-dose 75+ series) 2027 Meningococcal B Vaccine Aged Out No l onger eligible based on patient's age to complete this topic Meningococcal Vaccine Aged Out No janak job eligible based on patient's age to complete this topic RSV Immunizations Under 20 Months Aged Out No longer eligible based on patient's age to complete this topic Insurance [employer]ILRO[employer] MEDICARE [facility] Care Teams Acquisition Advisor Relationship Specialty Start Date End Date Rohith Brooks MD [address] [place] [address] PCP - General FAMILY PRACTICE 01/01/21
--- OUTSIDE RECORDS SUMMARY | 2024-12-31 08:36 | XMS_ITS | Encounter Summary ---
Author Organization [facility] Address [address] [place] [address] Care Team Providers Care Legal Aid Name Role Phone Rohith Brooks MD Primary Care Provider [phone] Encounter Details Date Type Department Care Team (Late st Contact Info) Description 01/31/2020 Lab Requisition [facility] DermPath Lab [address] [place] [id number] Jenni Bell MD [address] [facility] [address] [place] [address] Social History Tobacco Use Types Packs/Day Years Used Date Smoking Tobacco: Never Assessed Sex and Gender Information Value Date Recorded Sex Assigned at Not on file Gender Identity Not on file Sexual Orientation Not on file documented as of this encounter Plan of Treatment Not on file documented as of this encounter Procedures Procedure Name Priority Date/Time Associated Diagnosis Comments DERMATOPATHOLOGY Routine 01/30/2020 12:0 0 AM CDT documented in this encounter Results * DERMATOPATHOLOGY (01/30/2020 12:00 AM CDT) Case Report Dermatopathology Report Case: [id number] Authorizing Provider: Jenni Bell MD Collected: 01/30/2020 12:00 AM Ordering Location: [facility] DermPath Lab Received: 01/31/2020 07:49 AM Pathologist: Art Avila MD Specimen: Skin, right cheek 0 2:40 PM CDT DERMATOPATHOLOGY LABORATORY Final Diagnosis Specimen A. SKIN, right cheek: EPIDERMOID CYST (L72.0) 0 2:40 PM CDT DERMATOPATHOLOGY LABORATORY Clinical History Cyst. Cystic nodular drains. 0 2:40 PM CDT DERMATOPATHOLOGY LABORATORY Gross Description Specimen A: Received is one formalin filled container labeled with the patient's name and designated right cheek. The specimen consists of a punch measuring 5x9w4gz, bisected. Jar 0. 0 2:40 PM CDT DERMATOPATHOLOGY LABORATORY Microscopic Description Specimen A. SKIN, right cheek: Within the dermis, there is a space lined by epithelium that resembles normal epidermis and the infundibular portion of the hair follicle. 0 2:40 PM CDT DERMATOPATHOLOGY LABORATORY Disclaimer An external and internal positive and negative controls are appropriate for the histochemical, immunohistochemical and immunofluorescence stain(s) in this case (if any), except where stated explicitly. The performance characteristics of the stain(s) cited in this report were developed and its performance characteristic determined by the Dermatopathology Laboratory at [facility], directed by Dr. Mai Avila. These tests need not be, and therefore are not, approved by the [place] Food and Drug Administration. The tests are used for clinical purposes. Billing Codes Specimen Charges Stain Charges 89334 1 0 2:40 PM CDT DERMATOPATHOLOGY LABORATORY Embedded Images 0 2:40 PM CDT DERMATOPATHOLOGY LABORATORY Pathology/Cytolog y TISSUE SPECIMEN FROM SKIN / Unknown 01/30/2020 01/31/2020 7:49 AM CDT Jenni Bell MD LAB - PATHOLOGY/CYTO LOGY ORDERABLES DERMATOPATHOLOGY LABORATORY [facility] - Department of Dermatology [address] [place] [address], 5th Floor Lab [address] [phone] documented in this encounter Visit Diagnoses Not on filedocumented in this encounter Care Teams Legal Aid Relationship Specialty Start Date End Date Rohith Brooks MD PCP - General 04/15/18 documented as of this encounter
--- OUTSIDE RECORDS SUMMARY | 2024-12-31 08:36 | XMS_ITS | Continuity of Care Document ---
Author Organization [facility] Address [address] [place] [address] [place] [address] Phone Care Team Providers Care Aitchbone Breaker Name Role Phone Inderjit Pelletier Unavailable Unavailable Advance Directives Directive Yes / No Effective Date File Name No Information Encounters Encounter Description Practice Location Reason(s) For Visit Diagnoses Date Provider Providers Copied on Encounter [facility], [address] [place] [address] [address], [place], [place], [id number], [place] tel:[phone] [facility] No Information Prabhu Jansen. [address] [place], [address], [place]. tel:[phone] Referring Provider: Sydney Aden, [address] [place] [address], [facility]. tel:[phone] Family History Family Member Type Diagnosis Age At Onset No Information Payers Payer name Insurance type Covered libertarian ID Authoriza tion(s) No Information Social History [...]
--- OUTSIDE RECORDS SUMMARY | 2024-12-31 08:36 | XMS_ITS | Continuity of Care Document ---
Author Organization [facility] Address [address] [facility] [address] [place] [address] Phone Care Team Providers Care Profiling Machine Set Up Operator Name Role Phone Randy Webber MD Unavailable [...] Copied on Encounter OFFICE/OUTPAT IENT VISIT, [facility], [address] [facility] [address], [place], [place], [id number], tel:[phone] Jihan [facility] Blurry Vision (chief complaint) Age-related nuclear cataract, bilateralSt argardt's disease Fish Padilla. [address] [facility], [place], [place], [facility], . tel: [phone] Referring Provider: Randy Webber, [address] [facility], [place], [address]. tel:[phone] Family History Family Member Type Diagnosis Age At Onset Problem Family history of Macular de generation Payers Payer name Insurance type Covered alliance party ID Authoriza tion(s) [employer] Medicare MB [id number] Social History Type Description Quantity Date Captured Comments Alcohol Use Details Unknown Caffeine Use Details Unknown Tobacco Use Status Current non-smoker Smoking Status Never smoker Non-Smoking Tobacco Use Details : No Details Available : No Details Available Sex Male Chief Complaint And Reason For Visit From encounter dated '03/02/2022 09:40'. Blurry Vision (chief complaint). Description: The 71 [...] 3-[address] Galan. Plan Of Treatment Date Type Action Status No Information History Of Present Illness Encounter [...] 3-[address] Galan. Instructions Date Instruction Additional Infor lina Impression/Plan Related to Age-r elated nuclear cataract, [...]
--- OUTSIDE RECORDS SUMMARY | 2024-12-31 08:36 | XMS_ITS | Referral Summary ---
Author Organization [facility] Address [address] [facility] [place] [address] Care Team Providers Care Airbrush Artist Photography Name Role Phone Rohith Brooks MD Primary Care Provider [phone] Source Comments [facility],non-owned Affiliates and Associated Physician Practices is amultiple site organization consisting of ambulatory clinics and hospital sitesin [place], [place], [place] and [place]. This disclosure is being madepursuant to the Care Everywhere program and may not contain all information available regarding this patient. Last updated 18.[facility] [employer] Social History Tobacco Use Types Packs/Day Years Used Date Smoking Tobacco: Never Assessed Sex and Gender Information Value Date Recorded Sex Assigned at Not on file Gender Identity Not on file Sexual Orientation Not on file Plan of Treatment Not on file Care Teams Airbrush Artist Photography Relationship Specialty Start Date End Date Rohith Brooks MD PCP - General 04/15/18
--- OUTSIDE RECORDS SUMMARY | 2024-12-31 08:36 | XMS_ITS | Clinical Summary ---
Author Organization [facility] Address [address] [place] [address] Phone Care Team Providers Care Associate Attorney Name Role Phone Rohith Brooks MD Primary Care Provider [phone] Allergies No known active allergies Medications amLODIPine (NORVASC) 5 MG Tablet 05/07/2018 Active lisinopril (PRINIVIL, ZESTRIL) 20 MG Tablet 05/07/2018 Active pantoprazole (PROTONIX) 40 MG Tablet Delayed Response 05/06/2018 Active rosuvastatin (CRESTOR) 10 MG Tablet 06/14/2018 Active metoprolol tartrate (LOPRESSOR) 25 MG Tablet 05/06/2018 Active rivaroxaban (XARELTO) 20 MG Tablet Take 20 mg by mouth daily (with dinner). Take with food. Active tadalafil (CIALIS) 20 MG Tablet Take 20 mg by mouth as needed. Active Multiple Vitamins-Mineral s (PRESERVISION AREDS PO) Take by mouth. Active ferrous sulfate 325 (65 Fe) MG Tablet Take 1 Tab by mouth 2 times daily. 60 Tab 1 09/27/2018 Active sucralfate (CARAFATE) 1 GM Tablet Take 1 Tab by mouth every 6 hours. 120 Tab 3 09/27/2018 Active Family History Medical History Relation Name Comments Prostate Cancer Brother Heart Attack Father Prostate Cancer Father Colon Polyps Maternal Grandfather rectal cancer No Known Problems Mother Relation Name Status Comments Brother Father Maternal Grandfather Mother Social History Tobacco Use Types Packs/Day Years Used Date Smoking Tobacco: Never Smokeless Tobacco: Never Alcohol Use Standard Drinks/Week Comments No 0 (1 standard drink = 0.6 oz pur e alcohol) Sex and Gender Information Value Date Recorded Sex Assigned at Not on file Legal Sex Male 7:41 PM CDT Gender Identity Not on file Sexual Orientation Not on file Last Filed Vital Signs Vital Sign Reading Time Taken Comments Blood Pressure 138/72 07/26/2018 2:29 PM CDT Pulse 73 07/26/2018 2:29 PM CDT Temperature 36.9 C (98.5 F) 07/26/2018 2:29 PM CDT Respiratory Rate 16 07/26/2018 2:29 PM CDT Oxygen Saturation 98% 07/26/2018 2:29 PM CDT Inhaled Oxygen Concentration - - Weight 102.8 kg (226 lb 9.6 oz) 07/26/2018 2:29 PM CDT Height 175.3 cm (5' 9 ) 07/26/2018 2:29 PM CDT Body Mass Index 33.46 07/26/2018 2:29 PM CDT Plan of Treatment Health Maintenance Due Date Last Done Comments Hepatitis C Virus (HCV) Screening 1950 TdaP Immunization 1952 Cologuard 2002 Immunochemical Fecal Occult Blood 2002 Zoster Immunization (1 of 2) 2002 Pneumococcal Immunization (50+ years) (2 of 2 - PPSV23) 04/07/2020 04/07/2019 Colonoscopy 05/11/2023 05/11/2018 Colorectal Cancer Screening 05/11/2023 Influenza Immunization (#1) 2024 09/2 06/2020, 10/09/2019, 10/07/2018, Additional history exists SARS-COV-2 Immunization ( season) 2024 09/26/2021, 02/09/2021, 01/19/2021 Respiratory Syncytial Virus (RSV) Immunization (Adult) (1 - 1-dose 75+ series) 2027 05/11/2018 Pneumococcal Immunization Combined Discontinued 04/07/2019 Hepatitis B Immunization Aged Out No longer eligible based on patient's age to complete this topic Meningococcal Immunization (ACWY) Aged Out No longer eligible based on patient's age to complete this topic Rotavirus Immunization Aged Out No lo nger eligible based on patient's age to complete this topic Procedures Procedure Name Priority Date/Time Associated Diagnosis Comments COLONOSCOPY Routine 05/11/2018 from Last 3 Months or Most Recently Relevant to Health Maintenance Results * COLONOSCOPY (05/11/2018) Jeronimo Peacock DO PROCEDURE/MINOR SURGICAL ORDERA BLES Final Result from Last 3 Months or Most Recently Relevant to Health Maintenance Insurance MEDICARE [facility] Care Teams Associate Attorney Relationship Specialty Start Date End Date Rohith Brooks MD [address] [place] [address] [place] [id number] PCP - General Family Medicine 04/07/18
--- OUTSIDE RECORDS SUMMARY | 2024-12-31 08:36 | XMS_ITS | Patient Health Summary ---
Author Organization [facility] Address [address] [facility] [place] [address] Care Team Providers Care Cook Specialty Foreign Food Name Role Phone Rohith Brooks MD Primary Care Provider [phone] Note from [facility],non-owned Affiliates and Associated Physician Practices is amultiple site organization consisting of ambulatory clinics and hospital sitesin [place], [place], [place] and [place]. This disclosure is being madepursuant to the Care Everywhere program and may not contain all information available regarding this patient. Last updated 18.[facility] Social History Tobacco Use Types Packs/Day Years Used Date Smoking Tobacco: Never Assessed Sex and Gender Information Value Date Recorded Sex Assigned at Not on file Gender Identity Not on file Sexual Orientation Not on file Procedures * DERMATOPATHOLOGY(Performed 06/18/2021) * DERMATOPATHOLOGY(Performed 01/30/2020) Results * DERMATOPATHOLOGY (06/18/2021 12:00 AM CDT) Only the most recent of2 resultswithin the time period is included. Case Report Dermatopathology Report Case: [id number] Authorizing Provider: Kelsie Wallace MD Collected: 06/18/2021 12:00 AM Ordering Location: [facility] DermPath Lab Received: 06/19/2021 01:42 PM Pathologist: Diane Wei MD Specimen: Skin, right cheek 2:43 PM CDT DERMATOPATHOLOGY LABORATORY Final Diagnosis Specimen A. SKIN, right cheek: EPIDERMOID CYST (L72.0) 1 2:43 PM CDT DERMATOPATHOLOGY LABORATORY Clinical History Cyst, irritated 1 2:43 PM CDT DERMATOPATHOLOGY LABORATORY Gross Description Specimen A: Received is one formalin filled container labeled with the patient's name and designated right cheek. The specimen consists of a 11x5x4 mm piece of skin. The specimen is serially sectioned and a apprenticeship training representative section is submitted in cassette 1. Jar 0. 1 2:43 PM CDT DERMATOPATHOLOGY LABORATORY Microscopic Description Specimen A. SKIN, right cheek: Within the dermis, there is a space lined by epithelium that resembles normal epidermis and the infundibular portion of the hair follicle. 1 2:43 PM CDT DERMATOPATHOLOGY LABORATORY Disclaimer An external and internal positive and negative controls are appropriate for the histochemical, immunohistochemical and immunofluorescence stain(s) in this case (if any), except where stated explicitly. The performance characteristics of the stain(s) cited in this report were developed and its performance characteristic determined by the Dermatopathology Laboratory at [facility], directed by Dr. Mai Avila. These tests need not be, and therefore are not, approved by the [place] Food and Drug Administration. The tests are used for clinical purposes. Billing Codes Specimen Charges Stain Charges 01893 1 1 2:43 PM CDT DERMATOPATHOLOGY LABORATORY Embedded Images 1 2:43 PM CDT DERMATOPATHOLOGY LABORATORY Pathology/Cytolog y TISSUE SPECIMEN FROM SKIN / Unknown 06/18/2021 06/19/2021 1:42 PM CDT Kelsie Wallace MD LAB - PATHOLOGY/CYT OLOGY ORDERABLES DERMATOPATHOLOGY LABORATORY [facility] - Department of Dermatology [facility] Specialized Medicine [address] [place] [address], [address]rd Floor [address] [phone] Care Teams Cook Specialty Foreign Food Relationship Specialty Start Date End Date Rohith Brooks MD PCP - General 04/15/18
--- OUTSIDE RECORDS SUMMARY | 2024-12-31 08:36 | XMS_ITS | Clinical Summary ---
Author Organization [facility] Address [address] [place] [address] Care Team Providers Care Physical Education Aide Name Role Phone Rohith Brooks MD Primary Care Provider [phone] Source Comments [facility],non-owned Affiliates and Associated Physician Practices is amultiple site organization consisting of ambulatory clinics and hospital sitesin [place], [place], [place] and [place]. This disclosure is being madepursuant to the Care Everywhere program and may not contain all information available regarding this patient. Last updated 18.[facility] Social History Tobacco Use Types Packs/Day Years Used Date Smoking Tobacco: Never Assessed Sex and Gender Information Value Date Recorded Sex Assigned at Not on file Gender Identity Not on file Sexual Orientation Not on file Plan of Treatment Health Maintenance Due Date Last Done Comments COLOGUARD (AGES 45-75) - COL ON CA SCREENING 1950 COLON MONITORING 1952 COLONOSCOPY - COLON CA SCREENING 1952 CT COLONOGRAPHY - COLON CA SCREENING 1950 Colorectal Cancer Screening 1952 FIT - COLON CA SCREENING 1952 FLEX SIG - COLON CA SCREENING 1950 LIPID TESTING 1950 MEDICARE AWV 12 MONTHS 1950 HEPATITIS C SCREENING 10/23/1970 DTAP/TDAP/TD VACCINES (1 - Tdap) 1971 PNEUMOCOCCAL VACCINE 50+ (1 of 1 - PCV) 2002 ZOSTER VACCINE (1 of 2) 2002 COVID-19 VACCINE ( - 2023-2 5 season) 2024 INFLUENZA VACCINE (#1) 2024 DEPRESSION SCREENING 11/22/2024 Respiratory Syncytial Virus (RSV) Vaccine Pt: or over 60 yrs (1 - 1-dose 75+ series) 2027 HEPATITIS B VACCINE Aged Out No longe r eligible based on patient's age to complete this topic HIB VACCINE Aged Out No longer eligi ble based on patient's age to complete this topic HPV VACCINE Aged Out No longer eligi ble based on patient's age to complete this topic MENINGOCOCCAL (Group B) VACCINE Aged Out No longer eligible based on patient's age to complete this topic MENINGOCOCCAL VACCINE Aged Out No janak job eligible based on patient's age to complete this topic Care Teams Physical Education Aide Relationship Specialty Start Date End Date Rohith Brooks MD PCP - General 04/15/18
--- OUTSIDE RECORDS SUMMARY | 2024-12-31 08:39 | XMS_ITS | Continuity of Care Document ---
Author Organization [facility] Address [address] [facility] [address] [place] [address] Phone Care Team Providers Care Retail Business Analyst Name Role Phone Randy Webber MD Unavailable [...] Providers Copied on Encounter OFFICE/OUTPAT IENT VISIT, [facility], [address] [facility] [address], [place], [place], [id number], tel:[phone] Jihan [facility] Blurry Vision (chief complaint) Age-related nuclear cataract, bilateralSt argardt's disease Fish Padilla. [address] [facility], [place], [place], [facility], . tel: [phone] Referring Provider: Randy Webber, [address] [facility], [place], [address]. tel:[phone] Family History Family Member Type Diagnosis Age At Onset Problem Family history of Macular de generation Payers Payer name Insurance type Covered alliance party ID Authoriza tion(s) [employer] Medicare MB [id number] Social History Type Description Quantity Date Captured [...]
--- OUTSIDE RECORDS SUMMARY | 2024-12-31 08:39 | XMS_ITS | Continuity of Care Document ---
Author Organization [facility] Address [address] [place] [address] [place] [address] Phone Care Team Providers Care Technical Consultant Name Role Phone Inderjit Pelletier Unavailable Unavailable Advance Directives Directive Yes / No Effective Date File Name No Information Encounters Encounter Description Practice Location Reason(s) For Visit Diagnoses Date Provider Providers Copied on Encounter [facility], [address] [place] [address] [address], [place], [place], [id number], [place] tel:[phone] [facility] No Information Prabhu Jansen. [address] [place], [address], [place]. tel:[phone] Referring Provider: Sydney Aden, [address] [place] [address], [facility]. tel:[phone] Family History Family Member Type Diagnosis Age At Onset No Information Payers Payer name Insurance type Covered democrat ID Authoriza tion(s) No Information Social History [...]
[2024-12-31 08:53] VITALS: BP 166/68; PULSE 66; RESP 18; TEMP 37; O2SAT 100
--- NOTE | 2024-12-31 09:12 | ED.GENADULT ---
HPI - General Adult General Chief complaint: Upper Respiratory Infection Stated complaint: cold symptoms Time Seen by Provider: 12/31/24 09:12 Source: patient and family Mode of arrival: ambulatory Limitations: no limitations History of Present Illness HPI narrative: Andre is a 74 year old male who presents today with a 2 day history of fever, cough, and congestion. He reports that he started wheezing yesterday. He additionally reports a sore throat and some painful swallowing. He feels some improvement today with getting up and moving around. He denies headaches. All systems reviewed and negative unless otherwise noted in HPI and ROS. Related Data Home Medications ?Medication ?Instructions ?Recorded ?Confirmed ?Last Taken ?Type tamsulosin 0.4 mg capsule 0.4 mg PO HS 11/10/19 12/05/24 Unknown History sotalol 120 mg tablet mg 12/31/24 Unknown History Allergies Allergy/AdvReac Type Severity Reaction Status Date / Time steroids AdvReac Intermediate heart Uncoded 12/31/24 09:10 palpitations Review of Systems Review of Systems: CONSTITUTIONAL: Reports fever. Denies chills. Denies sweats. EYES: Denies visual changes, redness, or discharge. ENT: Reports rhinorrhea and congestion. Reports sore throat. Denies otalgia. CARDIOVASCULAR: Denies chest pain, palpitations, or edema. RESPIRATORY: Reports cough. Denies dyspnea. Reports wheezing GASTROINTESTINAL: Denies abdominal pain, vomiting, or diarrhea. GENITOURINARY: Denies dysuria or hematuria. SKIN: Denies rash or itching. MUSCULOSKELETAL: Denies back pain, joint pain, or myalgia. NEUROLOGIC: Denies numbness or weakness. Denies headache. PSYCHIATRIC: Denies anxiety or depression. All other systems reviewed are negative, except as documented in HPI. [facility] Past Medical History Medical History Pure hypercholesterolemia, unspecified Pancytopenia Personal history of prostate cancer Hypertension Paroxysmal A-fib Obesity GERD (gastroesophageal reflux disease) GAVE (gastric antral vascular ectasia) Hx of adenomatous colonic polyps Pneumonia due to 2019-nCoV Afib Osteoarthritis Surgical History Surgical History History of left inguinal hernia repair Repair reducible left inguinal hernia with mesh 03/22/24 History of cardiac cath History of hernia repair History of shoulder surgery Social History Social History Smoking status: Never smoker Second hand tobacco smoke exposure: No Alcohol intake: former Alcohol use details: SOCIAL 1-2 DRINKS/MONTH, QUIT 2020~ Substance use: never Substance use type: does not use Do You Feel Safe in your Home?: Yes Lack of Transportation: No Lack of Food: Never True Current Housing: I Have Housing Concerned About Future Housing: No Difficulty Paying Gas/Electric Bills: No Difficulty Paying for Meds: No Currently Unemployed: No Education: Associate Degree Difficulty w/ Childcare or Family Care: No Living arrangements: with family Occupation/Education: retired Gender identity (if verbalized by the patient): Male Sexual Orientation (if Verbalized by the Patient): Straight or Heterosexual Spiritual care concerns: No Comments At time of signature, I have reviewed and agree with nursing past medical, surgical, social and family history unless otherwise noted. Please see nursing chart for further information. There is no relevant family history pertinent to the presenting complaint. Exam Narrative: GENERAL: This is a well-nourished, well-developed patient, in no apparent distress. He appears acutely ill. HEAD: normocephalic, atraumatic. EYES: Sclera clear/white. Vision is grossly intact. EARS: External ears normal, auditory canals clear and without drainage, TMs slightly erythematous without perforation. Hearing grossly intact. NOSE: External nose normal, nares with redness and rhinorrhea. THROAT: Mucous membranes moist, posterior pharynx erythematous with no exudate or enlarged tonsils noted. NECK: Neck supple, non-tender without lymphadenopathy. CARDIOVASCULAR: Regular rhythm without murmurs, gallops, or rubs. RESPIRATORY: Clear to auscultation. Breath sounds equal bilaterally. No wheezes, rales, or rhonchi. +productive cough SKIN: warm, Dry, intact with no suspicious lesions or rash, good texture and turgor. NEURO: awake, alert, and oriented to person, place and time. There were no obvious focal neurologic abnormalities. EXTREMITIES: No joint tenderness, effusion, or edema noted. Course Course Emergency Course: Patient is aware of diagnosis, understands and agrees to treatment plan. Anticipatory guidance was given. Patient agrees to follow-up as directed and is aware of reasons to seek care at the emergency department. Please be advised this is a medical document. It is intended for [id number] communication. It is written in medical language and may contain unfamiliar abbreviations or verbiage. Medical documents are intended to carry relevant information, facts as evident, and the clinical opinion of the practitioner at the time of the encounter. This report may have been done utilizing a voice recognition system. Attempts have been made to correct errors. However, there may be uncorrected grammatical, spelling, and recognition errors present. The file time of this note does not necessarily represent the time the patient was seen. Level of Care: Express Care Visit Vital Signs Vital signs: Vital Signs Temperature 37.0 C 12/31/24 08:53 Pulse Rate 66 12/31/24 08:53 Respiratory Rate 18 12/31/24 08:53 Blood Pressure 166/68 H 12/31/24 08:53 Pulse Oximetry 100 12/31/24 08:53 Oxygen Delivery Room Air 12/31/24 08:53 Temperature 37.0 C 12/31/24 08:53 Pulse Rate 66 12/31/24 08:53 Respiratory Rate 18 12/31/24 08:53 Blood Pressure 166/68 H 12/31/24 08:53 Pulse Oximetry 100 12/31/24 08:53 Oxygen Delivery Room Air 12/31/24 08:53 reviewed. Medical Decision Making MDM Narrative Medical decision making narrative: Results of flu test reviewed with patient. Patient was positive for Flu A, and negative for Flu B and COVID. Discussed physical exam findings with patient and reviewed prescriptions. Discussed risks and benefits of Tamiflu, and we agreed that this is not indicated due to duration of symptoms and risks associated. Advised supportive measures and reviewed signs and symptoms for patient to return to clinic or go to the ER. Patient verbalized understanding. Differential Diagnosis Differential Diagnosis: Flu vs COVID vs other viral URI Vital Signs Vital Signs: Vital Signs Temperature 37.0 C 12/31/24 08:53 Pulse Rate 66 12/31/24 08:53 Respiratory Rate 18 12/31/24 08:53 Blood Pressure 166/68 H 12/31/24 08:53 Pulse Oximetry 100 12/31/24 08:53 Oxygen Delivery Room Air 12/31/24 08:53 Temperature 37.0 C 12/31/24 08:53 Pulse Rate 66 12/31/24 08:53 Respiratory Rate 18 12/31/24 08:53 Blood Pressure 166/68 H 12/31/24 08:53 Pulse Oximetry 100 12/31/24 08:53 Oxygen Delivery Room Air 12/31/24 08:53 Lab Data Labs: Lab Results 12/31/24 12/31/24 12/31/24 Range/Units 09:15 09:51 09:52 POC Influenza A Ag Positive Positive (Negative) POC Influenza B Ag Negative Negative (Negative) POC SARS CoV-2 Ag Negative Negative (Negative) reviewed. Discharge Plan Discharge Clinical Impression: Influenza A Patient Disposition: Home, Self-Care Condition: Stable Instructions: Antibiotic Form, Influenza (DC), Acute Cough (ED) Additional Instructions: You were diagnosed with influenza a today. Your COVID and influenza B test were negative. Please follow printed instructions and take medications as prescribed. You will start albuterol as needed for wheezing. And you will use benzonatate or Tessalon Perles as needed for cough. Continue your supportive care. If symptoms are not improving on this regimen, please return to clinic or follow up with PCP. If symptoms are worsening or you develop shortness of breath or any trouble breathing please proceed to the emergency room for further evaluation and treatment. Patient Language: Greek Prescriptions: New albuterol sulfate [Ventolin HFA] 90 mcg/actuation HFA aerosol inhaler 2 puff inhalation QID PRN (Reason: shortness of breath or wheezing) Qty: 8.5 0RF benzonatate 200 mg capsule 200 mg PO TID PRN (Reason: cough) Qty: 20 0RF No Action tamsulosin 0.4 mg Capsule 0.4 mg PO HS sotalol 120 mg tablet lisinopril 20 mg tablet See Rx Instructions .ROUTE .COMPLEX Qty: 180 2RF Dose Instruction: TAKE 1 TABLET BY MOUTH TWICE DAILY Rx Instructions: TAKE 1 TABLET BY MOUTH TWICE DAILY Xarelto 20 mg tablet See Rx Instructions .ROUTE .COMPLEX Qty: 90 2RF Dose Instruction: TAKE 1 TABLET BY MOUTH DAILY WITH EVENING MEAL Rx Instructions: TAKE 1 TABLET BY MOUTH DAILY WITH EVENING MEAL amlodipine 5 mg tablet 5 mg PO DAILY Qty: 90 1RF pantoprazole 40 mg tablet,delayed release (DR/EC) 40 mg PO DAILY Qty: 90 1RF sotalol 80 mg tablet 80 mg PO BID Qty: 60 5RF pravastatin 20 mg tablet 20 mg PO DAILY Qty: 90 1RF Follow-up/Referrals: Rohith Brooks MD [Primary Care Provider] - Time of Disposition: 09:43
[2024-12-31 09:53] LABS: EDCOVIDSCREEN Negative (Negative)
[2024-12-31 09:53] LABS: EDINFLUASCREEN Positive (Negative); EDINFLUBSCREEN Negative (Negative)
[2024-12-31 14:59] LABS: EDCOVIDSCREEN Negative (Negative); EDINFLUASCREEN Positive (Negative); EDINFLUBSCREEN Negative (Negative)
== END 2024-12-31 10:05 | disposition home or self-care (01) ==
PROVIDERS: Emergency Provider Nurse Practitioner; PCP Family Medicine
DX: J10.1 Influenza due to other identified influenza virus with other respiratory manifestations (principal); Z20.822 Contact with and (suspected) exposure to COVID-19; E78.00 Pure hypercholesterolemia, unspecified; I10 Essential (primary) hypertension; I48.91 Unspecified atrial fibrillation; K21.9 Gastro-esophageal reflux disease without esophagitis; M19.90 Unspecified osteoarthritis, unspecified site; Z85.46 Personal history of malignant neoplasm of prostate; E66.9 Obesity, unspecified; Z68.30 Body mass index [BMI] 30.0-30.9, adult
CPT/HCPCS: 87426; 87804; 99213; G0463

== ENCOUNTER 2025-04-05 08:38 | Outpatient (CLI) | payer MEDICARE, OTHER, SELFPAY ==
--- OUTSIDE RECORDS SUMMARY | 2025-04-05 08:47 | XMS_ITS | Continuity of Care Document ---
Author Organization [facility] Address [id number] [place] [address] [place] [address] Phone Care Team Providers Care Backhaul Driver Name Role Phone Inderjit Pelletier Unavailable Unavailable Advance Directives Directive Yes / No Effective Date File Name No Information Encounters Encounter Description Practice Location Reason(s) For Visit Diagnoses Date Provider Providers Copied on Encounter [facility], [id number] [place] [address] [address], [place], [place], [id number], [place] tel:[phone] [facility] No Information Prabhu Jansen. [address] [place], [address], [place]. tel:[phone] Referring Provider: Sydney Aden, [address] [place] [address] [place] [address], [facility]. tel:[phone] Family History Family Member Type Diagnosis Age [...]
--- OUTSIDE RECORDS SUMMARY | 2025-04-05 08:47 | XMS_ITS | Clinical Summary ---
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 Gender Identity Not on file Sexual Orientation Not on file Plan of Treatment Health Maintenance Due Date Last Done Comments Colorectal Cancer Screening Colonoscopy (10 Years) 1952 Hepatitis C 1970 DTaP, Tdap and Td Vaccines ( 1 - Tdap) 1971 Zoster Vaccines (1 of 2) 2002 Annual Medicare Wellness Visit 2017 Pneumococcal Vaccine: 50+ Ye ars (2 of 2 - PPSV23) 04/07/2020 04/07/2019 COVID-19 Vaccine ( - 2023-2 5 season) 2024 RSV Immunization or 60+ Years (1 [...] to complete this topic Insurance RAILROAD MEDICARE [facility] Care Teams 1St [employer] Relationship Specialty Start Date End Date Rohith Brooks MD [address] [place] [id number] PCP - General FAMILY PRACTICE 01/01/21
--- OUTSIDE RECORDS SUMMARY | 2025-04-05 08:47 | XMS_ITS | Encounter Summary ---
Author Organization [facility] Address [address] [facility] [place] [address] Care Team Providers Care Preflight Inspector Name Role Phone Rohith Brooks MD Primary Care Provider [phone] Encounter Details Date Type Department Care Team (Late st Contact Info) Description 01/31/2020 Lab Requisition [facility] DermPath Lab [address] [facility], [place] [address] Jenni Bell MD [address] [facility] [address] [place] [address] Social History Tobacco Use Types Packs/Day Years Used Date Smoking Tobacco: Never Assessed Sex and Gender Information Value Date Recorded Sex Assigned at Not on file 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 Gender Identity Not on file Sexual Orientation Not on file documented as of this encounter Plan of Treatment Not on file documented as of this encounter Procedures Procedure Name Priority Date/Time Associated Diagnosis Comments DERMATOPATHOLOGY Routine 01/30/2020 12:0 0 AM CDT documented in this encounter Results * DERMATOPATHOLOGY (01/30/2020 12:00 AM CDT) Case Report Dermatopathology Report Case: [id number] Authorizing Provider: Jenni Bell MD Collected: 01/30/2020 12:00 AM Ordering Location: [facility] DermPath Lab Received: 01/31/2020 07:49 [...] The specimen consists of a punch measuring [id number], bisected. Jar 0. 0 2:40 PM CDT [...] characteristic determined by the Dermatopathology Laboratory at [facility], directed by Dr. Mai Avila. These tests need not be, and therefore are not, approved by the [place] Food and Drug Administration. The tests are used for clinical purposes. Billing Codes Specimen Charges Stain Charges 31601 1 0 2:40 PM CDT DERMATOPATHOLOGY LABORATORY Embedded Images 0 2:40 PM CDT DERMATOPATHOLOGY LABORATORY Pathology/Cytolog y TISSUE SPECIMEN FROM SKIN / Unknown 01/30/2020 01/31/2020 7:49 AM CDT us Jenni Bell MD LAB - PATHOLOGY/CYTOLOGY ORD ERABLES Final Result DERMATOPATHOLOGY LABORATORY [facility] - Department of Dermatology [address] [place] [address], [address]th [place] [address], [facility] [phone] documented in this encounter Visit Diagnoses Not on filedocumented in this encounter Care Teams Preflight Inspector Relationship Specialty Start Date End Date Rohith Brooks MD PCP - General 04/15/18 documented as of this encounter
--- OUTSIDE RECORDS SUMMARY | 2025-04-05 08:47 | XMS_ITS | Clinical Summary ---
Author Organization [facility] Address [address] [facility] [place] [address] Care Team Providers Care Motor Vehicle Technician Name Role Phone Rohith Brooks MD Primary Care Provider [phone] Source Comments [facility],non-owned Affiliates and Associated Physician Practices is amultiple site organization consisting of ambulatory clinics and hospital sitesin [place], [place], [place] and [place]. This disclosure is being madepursuant to the Care Everywhere program and may not contain all information available regarding this patient. 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 Gender Identity Not on file Sexual Orientation [...] COLON CA SCREENING 1950 LIPID TESTING 1950 HEPATITIS C SCREENING 10/23/1970 DTAP/TDAP/TD VACCINES (1 - Tdap) 1971 PNEUMOCOCCAL VACCINE 50+ (1 of 1 - PCV) 2002 ZOSTER VACCINE (1 of 2) 2002 COVID-19 VACCINE ( - 2023-2 5 season) 2024 DEPRESSION SCREENING 11/22/2024 INFLUENZA VACCINE (Season Ended) 2025 Respiratory Syncytial Virus (RSV) Vaccine Pt: or [...] to complete this topic MENINGOCOCCAL (Group B) VACC INE SHARED DECISION-MAKING Aged Out No longer eligibl e based on patient's age to complete this topic MENINGOCOCCAL GROUPS A/C/Y/W VACCINE Aged Out No longer eligible b ased on patient's age to complete this topic Insurance MEDICARE [facility] Care Teams Motor Vehicle Technician Relationship Specialty Start Date End Date Rohith Brooks MD PCP - General 04/15/18
--- OUTSIDE RECORDS SUMMARY | 2025-04-05 08:47 | XMS_ITS | Clinical Summary ---
Author Organization [facility] Address [address] [place] [address] Phone Care Team Providers Care Circus Laborer Name Role Phone Rohith Brooks MD Primary Care Provider [phone] Allergies No known active allergies Medications amLODIPine [...] Recently Relevant to Health Maintenance [facility] Care Teams Circus Laborer Relationship Specialty Start Date End Date Rohith Brooks MD [address] [place] [address] [place] [id number] PCP - General Family Medicine 04/07/18
--- OUTSIDE RECORDS SUMMARY | 2025-04-05 08:47 | XMS_ITS | Continuity of Care Document ---
Author Organization [facility] Address [address] [facility] [address] [place] [address] Phone Care Team Providers Care Chief Unit Forester Name Role Phone Randy Webber MD Unavailable [...] Providers Copied on Encounter OFFICE/OUTPAT IENT VISIT, [facility], [address] [facility] [address], [place], [place], [id number], tel:[phone] [facility] Blurry Vision (chief complaint) Age-related nuclear cataract, bilateralSt argardt's disease Tejindercheryl Padilla. [address] [facility], [place], [place], [id number] , . tel: [phone] Referring Provider: Randy Webber, [address] [facility], [place], [address] . tel:[phone] Family History Family Member Type Diagnosis Age At Onset Problem Family history of degenerati ve disorder of macula Payers Payer name Insurance type Covered alliance party ID Authoriza timaricarmen(s) Number 1 Products and Services Medicare MB [id number] Social History Type Description Quantity Date Captured [...] Radiology Order Ze iss [facility] HD-OCT GAL ([id number]), Sent on: Sent History Of Present Illness [...]
[2025-04-05 10:09] LABS: Prostate Specific Antigen 2.8 ng/mL (< OR = 4.0)
== END 2025-04-05 08:39 | disposition home or self-care (01) ==
PROVIDERS: PCP Family Medicine; Visit Provider Urology
DX: C61 Malignant neoplasm of prostate (principal)
CPT/HCPCS: 36415; 84153

== ENCOUNTER 2025-05-04 09:45 | Outpatient (CLI) | payer MEDICARE, OTHER, SELFPAY ==
--- OUTSIDE RECORDS SUMMARY | 2025-05-04 09:51 | XMS_ITS | Clinical Summary ---
Author Organization [facility] Address [address] [place] [address] Phone Care Team Providers Care Weight Caller Name Role Phone Rohith Brooks MD Primary Care Provider [phone] Allergies No known active allergies Medications amLODIPine [...] 2:29 PM CDT Height 175.3 cm (5' 9) 07/26/2018 2:29 PM CDT Body Mass Index [...] (Adult) (1 - 1-dose 75+ series) 2027 Pneumococcal Immunization Combined Discontinued 04/07/2019 Hepatitis B [...] Recently Relevant to Health Maintenance Insurance MEDICARE RAILROAD Care Teams Weight Caller Relationship Specialty Start Date End Date Rohith Brooks MD [address] [place] [address] [place] [id number] PCP - General Family Medicine 04/07/18
--- OUTSIDE RECORDS SUMMARY | 2025-05-04 09:51 | XMS_ITS | Clinical Summary ---
Author Organization [facility] Address [address] [place] [address] Care Team Providers Care Concrete Wall Grinder Operator Name Role Phone Rohith Brooks MD Primary Care Provider [phone] Source Comments [facility],non-owned Affiliates and Associated Physician Practices is amultiple site organization consisting of ambulatory clinics and hospital sitesin [place], [place], [place] and [place]. This disclosure is being madepursuant to the Care Everywhere program and may not contain all information available regarding this patient. 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
--- OUTSIDE RECORDS SUMMARY | 2025-05-04 09:51 | XMS_ITS | Encounter Summary ---
Author Organization [facility] Address [address] [place] [address] Care Team Providers Care Collar Separator Name Role Phone Rohith Brooks MD Primary Care Provider [phone] Encounter Details Date Type Department Care Team (Late st Contact Info) Description 01/31/2020 Lab Requisition [facility] D[facility] Lab [address] [facility], [place] [address] Jenni Bell MD [address] [facility] [address] [place] [address] Social History Tobacco Use Types Packs/Day Years Used Date Smoking Tobacco: Never Assessed Sex and Gender Information Value Date Recorded Sex Assigned at Not on file 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 Gender Identity Not on file Sexual Orientation Not on file documented as of this encounter Plan of Treatment Not on file documented as of this encounter Procedures Procedure Name Priority Date/Time Associated Diagnosis Comments DERMATOPATHOLOGY Routine 01/30/2020 12:0 0 AM CDT documented in this encounter Results * DERMATOPATHOLOGY (01/30/2020 12:00 AM CDT) Case Report Dermatopathology Report Case: [id number] Authorizing Provider: Jenni Bell MD Collected: 01/30/2020 12:00 AM Ordering Location: [facility] DermPath Lab Received: 01/31/2020 07:49 AM Pathologist: Art Avila MD Specimen: Skin, right cheek 0 2:40 PM CDT DERMATOPATHOLOGY LABORATORY Final Diagnosis Specimen A. SKIN, right cheek: EPIDERMOID CYST (L72.0) 0 2:40 PM CDT DERMATOPATHOLOGY LABORATORY at 1440 CDT Clinical History Cyst. Cystic nodular drains. 0 2:40 PM CDT DERMATOPATHOLOGY LABORATORY Gross Description Specimen A: Received is one formalin filled container labeled with the patient's name and designated right cheek. The specimen consists of a punch measuring [id number], bisected. Jar 0. 0 2:40 PM CDT [...] characteristic determined by the Dermatopathology Laboratory at [facility], directed by Dr. Mai Avila. These tests need not be, and therefore are not, approved by the [place] Food and Drug Administration. The tests are used for clinical purposes. Billing Codes Specimen Charges Stain Charges 63806 1 0 2:40 PM CDT DERMATOPATHOLOGY LABORATORY Embedded Images 0 2:40 PM CDT DERMATOPATHOLOGY LABORATORY Pathology/Cytolog y TISSUE SPECIMEN FROM SKIN / Unknown 01/30/2020 01/31/2020 7:49 AM CDT us Jenni Bell MD LAB - PATHOLOGY/CYTOLOGY ORD ERABLES Final Result DERMATOPATHOLOGY LABORATORY [facility] - Department of Dermatology [address] [place] [address], [address]th [place] [address], [facility] [phone] documented in this encounter Visit Diagnoses Not on filedocumented in this encounter Care Teams Collar Separator Relationship Specialty Start Date End Date Rohith Brooks MD PCP - General 04/15/18 documented as of this encounter
[2025-05-04 10:35] LABS: Alanine Aminotransferase 15 U/L (6-50); Albumin Level 4.1 g/dL (3.5-5.1); Alkaline Phosphatase 51 U/L (38-126); Anion Gap 8 mmol/L (4-12); Aspartate Amino Transferase 25 U/L (17-59); Bilirubin,Total 0.6 mg/dL (0.2-1.3); Blood Urea Nitrogen 11 mg/dL (9-20); Calcium 8.9 mg/dL (8.4-10.2); Carbon Dioxide 27 mmol/L (22-30); Chloride 105 mmol/L (98-107); Estimated Glomerular Filt Rate > 60; Glucose 100 mg/dL (65-110); Potassium 4.2 mmol/L (3.4-5.0); Sodium 140 mmol/L (137-145); Total Protein 6.6 g/dL (6.3-8.2)
[2025-05-04 11:34] LABS: Cholesterol 147 mg/dL (0-200); HDL Direct 46 mg/dL; Triglycerides 75 mg/dL (<150)
[2025-05-04 11:45] LABS: LDL Cholesterol Direct 72 mg/dL
== END 2025-05-04 09:46 | disposition home or self-care (01) ==
LOC: ANHLAB 09:46
PROVIDERS: PCP Family Medicine; Visit Provider Family Medicine
DX: I10 Essential (primary) hypertension (principal)
CPT/HCPCS: 36415; 80053; 80061

== ENCOUNTER 2025-05-17 13:24 | Outpatient (CLI) | payer MEDICARE, OTHER, SELFPAY ==
--- NOTE | ~2025-05-17 | PE_ITS ---
EXAMINATION: PET_PETPSMAST_PT DATE: 05/17/2025 16:05 INDICATION: Prostate cancer TECHNIQUE: 5.604 mCi of Illucix Ga-68([id number]) was administered i.v. Low dose computed gregoria graphy (CT) images were acquired from the base of the brain to the base of the brain to the proximal thighs for attenuation correction and anatomic localization. Positron emission tomography (PET) image s were acquired in the same distribution beginning 80 minutes after injection. Images including fused PET/CT images were reconstructed in axial, coronal, and sagittal planes. Automated exposure control technique was employed. The dose-length product was 1205.38 mGy-cm. COMPARISON: Chest CT dated 11/29/2020 and PET/CT dated 03/27/08 FINDINGS: Head/neck: Typical pattern of symmetric physiologic increased activity in the lacrimal, parotid and submandibula r glands as well as along the mucosa of the nasal and oral cavities, pharynx and hypopharynx. Subcent imeter focus of mild uptake with maximal SUV of 5.5 near a punctate calcification at the deep right t hyroid suspicious for a thyroid nodule. No pathologically enlarged cervical lymphadenopathy or other suspicious foci of increased uptake in the visualized head or neck. Chest: No suspicious pulmonary nodules, pneumonia, pulmonary edema or pleural effusion. Heart size normal. A therosclerotic coronary artery calcific lesion. No pericardial effusion. Thoracic aorta is normal in caliber. No pathologically enlarged thoracic lymphadenopathy. Abdomen/pelvis/proximal thighs: Physiologic renal accumulation and excretion of activity in the kidneys, bladder and along portions o f ureters. 1.7 cm exophytic lesion at the upper pole the right kidney which is of soft tissue density equivalent for complicated proteinaceous/hemorrhagic cyst versus solid neoplasm. 5 mm nonobstructing stone at a lower pole calyx of the left kidney. Normal degree and slightly heterogenous pattern of i ncreased uptake throughout the liver and spleen without radiologic correlate or dominant PSMA avid le ona. The gallbladder, pancreas and bilateral adrenal glands are normal. Moderate uptake scattered th roughout the bowels with typical duodenal and proximal jejunal predominance and without radiologic co rrelate, also likely physiologic. Normal appendix. Prostatomegaly measuring 5.0 x 4.1 cm with couple internal metallic foreign bodies which could represent brachytherapy seeds or fiducials markers. Ther e is minimal diffuse uptake throughout the prostate with maximal SUV of 2.6. Small right and moderate -sized left hydroceles. No other abnormal foci of increased uptake or pathologically enlarged lymphad enopathy in the abdomen, pelvis or proximal thighs. Musculoskeletal: No suspicious lytic, blastic or abnormally PSMA avid bone lesions. IMPRESSION: 1. Subcentimeter focus of mild uptake in the inferior right thyroid. Differential would include metas tatic prostate cancer or thyroid nodule either benign or malignant and would recommend thyroid ultras ound for risk stratification and possible biopsy. 2. Minimal uptake throughout the enlarged prostate, equivocal for residual disease. No other lesions suspicious for metastatic disease in the bones, chest, abdomen or pelvis. Reviewed, dictated and finalized at location A. IMPRESSION: 1. Subcentimeter focus of mild uptake in the inferior right thyroid. Differenti al would include metastatic prostate cancer or thyroid nodule either benign or malignant and would recommend thyroid ultrasound for risk stratification and po ssible biopsy. 2. Minimal uptake throughout the enlarged prostate, equivocal for residual dise ase. No other lesions suspicious for metastatic disease in the bones, chest, ab domen or pelvis.
== END 2025-05-17 13:25 | disposition home or self-care (01) ==
PROVIDERS: PCP Family Medicine; Visit Provider Urology
DX: C61 Malignant neoplasm of prostate (principal)
CPT/HCPCS: 78815; A9596

== ENCOUNTER 2025-06-13 15:57 | Outpatient (CLI) | payer MEDICARE, OTHER, SELFPAY ==
--- NOTE | ~2025-06-13 | US_ITS ---
US thyroid INDICATION: Abnormal findings on PET scan TECHNIQUE: Real-time sonographic images of the thyroid gland were obtained. COMPARISON: Pet/CT scan dated 05/17/2020 FINDINGS: The right thyroid lobe measures 5 x 1.7 x 1.4 cm. The left thyroid lobe measures 5.2 x 1.6 x 1.4 cm. Left lobe is normal without discrete mass. In the right lobe there is a complex mostly zee id hypoechoic mass which is wider than tall, smoothly marginated with macrocalcifications measuring 1 .5 x 1.1 x 0.9 cm, TR 4. Normal vascular flow is present. IMPRESSION: 1. Right thyroid mass corresponding to the abnormality seen on recent PET scan. Follow-up ultrasound -guided fine-needle aspiration biopsy. Reviewed, dictated and finalized at location A. IMPRESSION: 1. Right thyroid mass corresponding to the abnormality seen on recent PET scan . Follow-up ultrasound-guided fine-needle aspiration biopsy.
--- OUTSIDE RECORDS SUMMARY | 2025-06-13 16:01 | XMS_ITS | Continuity of Care Document ---
Author Organization [facility] Address [id number] [place] [address] [place] [address] Phone Care Team Providers Care Customer Sales Specialist Name Role Phone Inderjit Pelletier Unavailable Unavailable Advance Directives Directive Yes / No Effective Date File Name No Information Encounters Encounter Description Practice Location Reason(s) For Visit Diagnoses Date Provider Providers Copied on Encounter [facility], [id number] [place] [address] [address], [place], [place], [id number], [place] tel:[phone] [facility] No Information Prabhu Jansen. [address] [place], [address], [place]. tel:[phone] Referring Provider: Sydney Aden, [address] [place] [address] [place] [address], [facility]. tel:[phone] Family History Family Member Type Diagnosis Age [...]
--- OUTSIDE RECORDS SUMMARY | 2025-06-13 16:01 | XMS_ITS | Clinical Summary ---
Author Organization [facility] Address [address] [place] [address] Phone Care Team Providers Care Trade Show Coordinator Name Role Phone Rohith Brooks MD Primary Care Provider [phone] Allergies No known active allergies Medications amLODIPine [...] (HCV) Screening 1950 TdaP Immunization 1950 Cologuard 1997 Immunochemical Fecal Occult Blood 1997 Zoster Immunization (1 of 2) 2002 Pneumococcal Immunization (50+ years) (2 of 2 - PPSV23) 04/07/2020 04/07/2019 Colonoscopy 05/11/2023 05/11/2018 Colorectal Cancer Screening 05/11/2023 SARS-COV-2 Immunization ( season) 2024 09/26/2021, 02/09/2021, 01/19/2021 Influenza Immunization (#1) 07/23/202507/24, 10/09/2019, 10/07/2018, Additional history exists Respiratory Syncytial Virus (RSV) Immunization (Adult) (1 - 1-dose 75+ series) 2027 Pneumococcal Immunization Combined Discontinued 04/07/2019 Hepatitis B Immunization Aged Out No longer eligible based on patient's age to complete this topic Human Papillomavirus (HPV) Immunization Aged Out No longer eligible based [...] Health Maintenance Insurance MEDICARE RAILROAD Care Teams Trade Show Coordinator Relationship Specialty Start Date End Date Rohith Brooks MD [address] [place] [address] [place] [id number] PCP - General Family Medicine 04/07/18
--- OUTSIDE RECORDS SUMMARY | 2025-06-13 16:01 | XMS_ITS | Encounter Summary ---
Author Organization [facility] Address [address] [place] [address] Care Team Providers Care Field Crew Chief Name Role Phone Rohith Brooks MD Primary Care Provider [phone] Encounter Details Date Type Department Care Team (Late st Contact Info) Description 01/31/2020 Lab Requisition [facility] DermPath Lab [address] 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 Derm[facility] Lab Received: 01/31/2020 07:49 AM Pathologist: [...] The specimen consists of a punch measuring [id number], bisected. Jar 0. 0 2:40 PM CDT [...] characteristic determined by the Dermatopathology Laboratory at [facility], directed by Dr. Mai Avila. These tests need not be, and therefore are not, approved by the [place] Food and Drug Administration. The tests are used for clinical purposes. Billing Codes Specimen Charges Stain Charges 27232 1 0 2:40 PM CDT DERMATOPATHOLOGY LABORATORY Embedded Images 0 2:40 PM CDT DERMATOPATHOLOGY LABORATORY Pathology/Cytolog y TISSUE SPECIMEN FROM SKIN / Unknown 01/30/2020 01/31/2020 7:49 AM CDT us Jenni Bell MD LAB - PATHOLOGY/CYTOLOGY ORD ERABLES Final Result DERMATOPATHOLOGY LABORATORY [facility] - Department of Dermatology [address] [place] [address], 5th [place] [address], [facility] [phone] documented in this encounter Visit Diagnoses Not on filedocumented in this encounter Care Teams Field Crew Chief Relationship Specialty Start Date End Date Rohith Brooks MD PCP - General 04/15/18 documented as of this encounter
--- OUTSIDE RECORDS SUMMARY | 2025-06-13 16:01 | XMS_ITS | Clinical Summary ---
Author Organization [facility] Address [address] [facility] [place] [address] Care Team Providers Care Bowling Alley Operator Name Role Phone Rohith Brooks MD Primary Care Provider [phone] Source Comments [facility],non-owned Affiliates and Associated Physician Practices is amultiple site organization consisting of ambulatory clinics and hospital sitesin [place], [place], [place] and [place]. This disclosure is being madepursuant to the Care Everywhere program and may not contain all information available regarding this patient. 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
--- OUTSIDE RECORDS SUMMARY | 2025-06-13 16:01 | XMS_ITS | Continuity of Care Document ---
Author Organization [facility] Address [address] [facility] [address] [place] [address] Phone Care Team Providers Care Mail Order Sorter Name Role Phone Randy Webber MD Unavailable [...] Providers Copied on Encounter OFFICE/OUTPAT IENT VISIT, [facility], [address] [facility] [address], [place], [place], [id number], tel:[phone] Jihan [facility] Blurry Vision (chief complaint) Age-related nuclear cataract, bilateralSt argardt's disease Tejindercheryl Padilla. [address] [facility], [place], [place], [id number] , . tel: [phone] Referring Provider: Randy Webber, [address] [facility], [place], [address] . tel:[phone] Family History Family Member Type Diagnosis Age At Onset Problem Family history of degenerati ve disorder of macula Payers Payer name Insurance type Covered constitution party ID Authoriza timaricarmen(s) [employer] Medicare MB [id number] Social History Type Description Quantity Date Captured [...] Radiology Order Ze iss [facility] HD-OCT GAL ([id number]), Sent on: Sent History Of Present Illness [...]
--- OUTSIDE RECORDS SUMMARY | 2025-06-13 16:01 | XMS_ITS | Clinical Summary ---
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
== END 2025-06-13 15:58 | disposition home or self-care (01) ==
PROVIDERS: PCP Family Medicine; Visit Provider Family Medicine
DX: R93.89 Abnormal findings on diagnostic imaging of other specified body structures (principal); E04.1 Nontoxic single thyroid nodule
CPT/HCPCS: 76536

== ENCOUNTER 2025-07-26 09:51 | Outpatient (CLI) | payer MEDICARE, OTHER, SELFPAY ==
--- OUTSIDE RECORDS SUMMARY | 2004-11-27 08:15 | XMS_ITS | Continuity of Care Document ---
Author Organization [facility] Address [address] [place] [address] [place] [address] Phone Care Team Providers Care Safe Technician Name Role Phone Inderjit Pelletier Unavailable Unavailable Advance Directives Directive Yes / No Effective Date File Name No Information Encounters Encounter Description Practice Location Reason(s) For Visit Diagnoses Date Provider Providers Copied on Encounter [facility], [address] [place] [address] [address], [place], [place], [address], [place] tel:[phone] [facility] No Information Prabhu Jansen. [address] [place], [address], [place]. tel:[phone] Referring Provider: Sydney Aden, [address] [place] [address], [facility]. tel:[phone] Family History Family Member Type Diagnosis Age At Onset No Information Payers Payer name Insurance type Covered green party ID Authoriza tion(s) No Information Social History [...]
--- OUTSIDE RECORDS SUMMARY | 2022-03-02 03:40 | XMS_ITS | Continuity of Care Document ---
Author Organization [facility] Address [address] [facility] [address] [place] [address] Phone Care Team Providers Care Louver Door Assembler Name Role Phone Randy Webber MD Unavailable Unavailable Allergies, Adverse Reactions, Alerts Substance Reaction Status Criticality No Known Allergies Active No Inform ation Medications Medication Instructions Dosage Effective Dates (start - stop) Status Comments pravastatin 20 mg tablet take 1 tablet by oral route every day 20 MG - Active amlodipine 5 mg tablet take 1 tablet by oral route 2 times every day 5 MG - Active lisinopril 20 mg tablet take 1 tablet by oral route every day 20 MG - Active pantoprazole 40 mg tablet,delayed release take 1 tablet by oral route every day 40 MG - Active sotalol 80 mg tablet take 1 tablet by or al route 2 times every day 80 MG - Active tamsulosin 0.4 mg capsule take 1 capsule by oral route every day 1/2 hour following the same meal each day 0.4 MG - Active Xarelto 20 mg tablet take 1 tablet by or al route every day with the evening meal 20 MG - Active Procedures Procedure Date FUNDUS PHOTOGRAPHY OPHTHALMIC BIOMETRY OFFICE/OUTPATIENT VISIT, NEW OPHTHALMIC BIOMETRY Advance Directives Directive Yes / No Effective Date File Name No Information Encounters Encounter Description Practice Location Reason(s) For Visit Diagnoses Date Provider Providers Copied on Encounter OFFICE/OUTPAT IENT VISIT, [facility] [place] [facility], [address] [address], [place], [place], [id number], tel:[phone] Jihan [facility] Blurry Vision (chief complaint) Age-related nuclear cataract, bilateralSt argardt's disease Tejindercheryl Padilla. [address] [facility], [place], [place], [address] , . tel: [phone] Referring Provider: Randy Webber, [address] [facility], [place], [address] . tel:[phone] Family History Family Member Type Diagnosis Age At Onset Problem Family history of degenerati ve disorder of macula Payers Payer name Insurance type Covered green party ID Authoriza timaricarmen(s) [employer] Medicare MB [id number] Social History Type Description Quantity Date Captured Comments Alcohol Use Details Unknown Caffeine Use Details Unknown Tobacco Use Status Current non-smoker Smoking Status Never smoker Non-Smoking Tobacco Use Details : No Details Available : No Details Available Sex Male Chief Complaint And Reason For Visit From encounter dated '03/02/2022 08:40'. Blurry Vision (chief complaint). Description: The 71 year old male presents for evaluation of Blurry Vision in the right eye and left eye. The symptom is constant. The condition is significant. Pt has noticed blurry vision for many years now. Was diagnosed with Stargardt's 19 years ago. Says that deterioration was slow. Worsening more in the last 3-4 years. Was referred by Dr. Galan. Reason For Referral Reason For Referral No Information Plan Of Treatment Date Type Action Status Future Order: Radiology Order Ze iss [facility] HD-OCT GAL ([id number]), Sent on: Sent History Of Present Illness Encounter Date Complaint History Of Prese nt Illness Blurry Vision The 71 year old male presents for evaluation of Blurry Vision in the right eye and left eye. The symptom is constant. The condition is significant. Pt has noticed blurry vision for many years now. Was diagnosed with Stargardt's 19 years ago. Says that deterioration was slow. Worsening more in the last 3-4 years. Was referred by Dr. Eghigian. Functional Status Date Functional Assessmen t No Information Instructions Date Instruction Additional Infor mation Impression/Plan Related to Age-r elated nuclear cataract, bilateral Impression/Plan Related to Starg ardt's disease Assessments Type Assessment Date assessment Age-related nuclear cataract, bi lateral impression Age-related nuclear cataract, bilateral: H25.13. Test - IOL Master Reliability - good Findings- Axial length and keratometry readings appear accurate Interpretation/Plan - reliable results to proceed with cataract surgery assessment Stargardt's disease impression Stargardt's disease: H35.53 Patient Care Teams Name Effective Dates (start - stop) Status Members No Information
--- NOTE | ~2025-07-26 | US_ITS ---
EXAMINATION: US FNA w image guidance DATE: 07/26/2025 11:09 INDICATION: Nontoxic single thyroid nodule TECHNIQUE: A time-out was performed to verify the patient's name, date of , and procedure to be performed. The procedure and its benefits and risks were discussed with the patient. Risks specifically discussed included bleeding and infection. The patient understood the risks and agreed to proceed. The neck was prepped and draped in the usual sterile manner. 2 mL 1% lidocaine was used for local anesthesia. 6 passes were made with a 25G needle into the lesion. Appropriate needle location was documented with continuous sonographic guidance. A sterile bandage was applied. There were no immediate complications. FINDINGS: Grayscale ultrasound images demonstrate biopsy needles advanced into a 1.5 cm solid hypoechoic TI RADS 4 nodule with coarse calcification in the right thyroid lobe. IMPRESSION: 1. Successful ultrasound-guided fine needle aspiration of a 1.5 cm TI RADS 4 right thyroid nodule. Reviewed, dictated and finalized at location A. IMPRESSION: 1. Successful ultrasound-guided fine needle aspiration of a 1.5 cm TI RADS 4 r ight thyroid nodule.
--- OUTSIDE RECORDS SUMMARY | 2025-07-26 10:20 | XMS_ITS | Encounter Summary ---
Author Organization [facility] Address [address] [place] [address] Care Team Providers Care Polisher Eyeglass Frames Name Role Phone Rohith Brooks MD Primary Care Provider [phone] Encounter Details Date Type Department Care Team (Late st Contact Info) Description 01/31/2020 Lab Requisition [facility] DermPath Lab [address] [facility], [place] [address] Jenni Bell MD [address] [facility] [address] [place] [address] Social History Tobacco Use Types Packs/Day Years Used Date Smoking Tobacco: Never Assessed Sex and Gender Information Value Date Recorded Sex Assigned at Not on file 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 Gender Identity Not on file Sexual Orientation Not on file documented as of this encounter Plan of Treatment Not on file documented as of this encounter Procedures Procedure Name Priority Date/Time Associated Diagnosis Comments DERMATOPATHOLOGY Routine 01/30/2020 12:0 0 AM CDT documented in this encounter Results * DERMATOPATHOLOGY (01/30/2020 12:00 AM CDT) Case Report Dermatopathology Report Case: [id number] Authorizing Provider: Jenni Bell MD Collected: 01/30/2020 12:00 AM Ordering Location: [facility] DermPath Lab Received: 01/31/2020 07:49 [...] The specimen consists of a punch measuring [id number], bisected. Jar 0. 0 2:40 PM CDT [...] characteristic determined by the Dermatopathology Laboratory at [facility], directed by Dr. Mai Avila. These tests need not be, and therefore are not, approved by the [place] Food and Drug Administration. The tests are used for clinical purposes. Billing Codes Specimen Charges Stain Charges 38353 1 0 2:40 PM CDT DERMATOPATHOLOGY LABORATORY Embedded Images 0 2:40 PM CDT DERMATOPATHOLOGY LABORATORY Pathology/Cytolog y TISSUE SPECIMEN FROM SKIN / Unknown 01/30/2020 01/31/2020 7:49 AM CDT us Jenni Bell MD LAB - PATHOLOGY/CYTOLOGY ORD ERABLES Final Result DERMATOPATHOLOGY LABORATORY [facility] - Department of Dermatology [address] [place] [address], 5th [place] [address], [facility] [phone] documented in this encounter Visit Diagnoses Not on filedocumented in this encounter Care Teams Polisher Eyeglass Frames Relationship Specialty Start Date End Date Rohith Brooks MD PCP - General 04/15/18 documented as of this encounter
--- OUTSIDE RECORDS SUMMARY | 2025-07-26 10:20 | XMS_ITS | Clinical Summary ---
Author Organization [facility] Address [address] [place] [address] Phone Care Team Providers Care Crew Director Name Role Phone Rohith Brooks MD Primary Care Provider Allergies No known active allergies Medications amLODIPine [...] Immunization (50+ years) (2 of 2 - PCV20 or PCV21) 04/07/2020 04/07/2019 Colonoscopy 05/11/2023 05/11/2018 Colorectal Cancer [...] Health Maintenance Insurance MEDICARE RAILROAD Care Teams Crew Director Relationship Specialty Start Date End Date Rohith Brooks MD [address] [place] [address] [place] [address] PCP - General Family Medicine 04/07/18
--- OUTSIDE RECORDS SUMMARY | 2025-07-26 10:20 | XMS_ITS | Clinical Summary ---
Author Organization [facility] Address [address] [facility] [place] [address] Care Team Providers Care Molding Process Technician Name Role Phone Rohith Brooks MD Primary Care Provider [phone] Source Comments [facility] [employer] [employer] [facility],non-owned Affiliates and Associated Physician Practices is amultiple site organization consisting of ambulatory clinics and hospital sitesin [place], [place], [place] and [place]. This disclosure is being madepursuant to the Care Everywhere program and may not contain all information available regarding this patient. 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
--- OUTSIDE RECORDS SUMMARY | 2025-07-26 10:20 | XMS_ITS | Clinical Summary ---
Author Organization [facility] Address [address] [place] [address] Care Team Providers Care Oil Dispenser Name Role Phone Rohith Brooks MD Primary Care Provider [phone] Social History Tobacco Use Types Packs/Day Years Used Date Smoking Tobacco: Never Assessed Sex and Gender Information Value Date Recorded Sex Assigned at Not on file Legal Sex Male 12:30 PM LOCUM TENENS Gender Identity Not on file Sexual Orientation [...] to complete this topic Insurance RAILROAD MEDICARE [facility] Care Teams Oil Dispenser Relationship Specialty Start Date End Date Rohith Brooks MD [address] [place] [address] PCP - General FAMILY PRACTICE 01/01/21
--- NOTE | 2025-07-26 10:37 | CY_PTH ---
PATIENT: Andre Mas LOC: ANHIMG #:[id number] AGE/SX: 74/M ROOM: RE07/26/[address]: Rohith Brooks MD : 1950 BED: DIS: 07/26/2025 SPEC #: [id number] RECD: 07/26/25 11:23 STATUS: CAROLINA LEDEZMA #: [id number] ALLYN: 07/26/25 10:[address]: Rohith Brooks DEPT: [facility] Cytology RECD BY: Анна Reis Tissues: A - FNA Thyroid Procedures: Hematoxylin and Eosin Stain Cell Block Fine Needle Aspiration Evaluation Fine Needle Aspiration Pathologist
== END 2025-07-26 09:52 | disposition home or self-care (01) ==
PROVIDERS: PCP Family Medicine; Visit Provider Family Medicine
DX: E04.1 Nontoxic single thyroid nodule (principal)
CPT/HCPCS: 10005; 88172; 88173; 88305

== ENCOUNTER 2025-08-01 14:06 | Outpatient (CLI) | payer MEDICARE, OTHER, SELFPAY ==
--- OUTSIDE RECORDS SUMMARY | 2004-11-27 08:15 | XMS_ITS | Continuity of Care Document ---
Author Organization [facility] Address [address] [place] [address] [place] [address] Phone Care Team Providers Care Director Of It Operations Name Role Phone Inderjit Pelletier Unavailable Unavailable Advance Directives Directive Yes / No Effective Date File Name No Information Encounters Encounter Description Practice Location Reason(s) For Visit Diagnoses Date Provider Providers Copied on Encounter [facility], [address] [place] [address] [address], [place], [place], [id number], [place] tel:[phone] [facility] No Information Prabhu Jansen. [address] [place], [address], [place]. tel:[phone] Referring Provider: Sydney Aden, [address] [place] [address], [facility]. tel:[phone] Family History Family Member Type Diagnosis Age [...]
--- OUTSIDE RECORDS SUMMARY | 2022-03-02 03:40 | XMS_ITS | Continuity of Care Document ---
Author Organization [facility] Address [address] [place] [address] Phone Care Team Providers Care Supervisor Alum Plant Name Role Phone Randy Webber MD Unavailable [...] Providers Copied on Encounter OFFICE/OUTPAT IENT VISIT, [facility], [address] [facility] [address], [place], [place], [address], tel:[phone] Jihan [facility] Blurry Vision (chief complaint) Age-related nuclear cataract, bilateralSt argardt's disease Tejindercheryl Padilla. [address] [facility], [place], [place], [address] , . tel: [phone] Referring Provider: Randy Webber, [address] [facility], [place], [address] . tel:[phone] Family History Family Member Type Diagnosis Age At Onset Problem Family history of degenerati ve disorder of macula Payers Payer name Insurance type Covered democrat ID Authoriza timaricarmen(s) [employer] Medicare MB [id number] Social History Type Description Quantity Date Captured [...] Radiology Order Ze iss [facility] HD-OCT GAL ([id number]), Sent on: Sent History Of Present Illness [...]
--- OUTSIDE RECORDS SUMMARY | 2025-08-01 14:44 | XMS_ITS | Encounter Summary ---
Author Organization [facility] Address [address] [facility] [place] [address] Care Team Providers Care Incident Manager Name Role Phone Rohith Brooks MD Primary Care Provider [phone] Encounter Details Date Type Department Care Team (Late st Contact Info) Description 01/31/2020 Lab Requisition [facility] DermPath Lab [address] [facility], [place] [address] Jenni Bell MD [address] [facility] [address] [place] [address] Social History Tobacco Use Types Packs/Day Years Used Date Smoking Tobacco: Never Assessed Sex and Gender Information Value Date Recorded Sex Assigned at Not on file 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 Gender Identity Not on file Sexual Orientation Not on file documented as of this encounter Plan of Treatment Not on file documented as of this encounter Procedures Procedure Name Priority Date/Time Associated Diagnosis Comments DERMATOPATHOLOGY Routine 01/30/2020 12:0 0 AM CDT documented in this encounter Results * DERMATOPATHOLOGY (01/30/2020 12:00 AM CDT) Case Report Dermatopathology Report Case: [id number] Authorizing Provider: Jenni Bell MD Collected: 01/30/2020 12:00 AM Ordering Location: [facility] DermPath Lab Received: 01/31/2020 07:49 AM Pathologist: [...] The specimen consists of a punch measuring [id number], bisected. Jar 0. 0 2:40 PM CDT [...] characteristic determined by the Dermatopathology Laboratory at [facility], directed by Dr. Mai Avila. These tests need not be, and therefore are not, approved by the [place] Food and Drug Administration. The tests are used for clinical purposes. Billing Codes Specimen Charges Stain Charges 82968 1 0 2:40 PM CDT DERMATOPATHOLOGY LABORATORY Embedded Images 0 2:40 PM CDT DERMATOPATHOLOGY LABORATORY Pathology/Cytolog y TISSUE SPECIMEN FROM SKIN / Unknown 01/30/2020 01/31/2020 7:49 AM CDT us Jenni Bell MD LAB - PATHOLOGY/CYTOLOGY ORD ERABLES Final Result DERMATOPATHOLOGY LABORATORY [facility] - Department of Dermatology [address] [place] [address], 5th [place] [address], [facility] [phone] documented in this encounter Visit Diagnoses Not on filedocumented in this encounter Care Teams Incident Manager Relationship Specialty Start Date End Date Rohith Brooks MD PCP - General 04/15/18 documented as of this encounter
--- OUTSIDE RECORDS SUMMARY | 2025-08-01 14:44 | XMS_ITS | Clinical Summary ---
Author Organization [facility] Address [address] [place] [address] Phone Care Team Providers Care Swimming Pool Maintenance Name Role Phone Rohith Brooks MD Primary [...] Health Maintenance Insurance MEDICARE RAILROAD Care Teams Swimming Pool Maintenance Relationship Specialty Start Date End Date Rohith Brooks MD [address] [place] [address] [place] [address] PCP - General Family Medicine 04/07/18
--- OUTSIDE RECORDS SUMMARY | 2025-08-01 14:44 | XMS_ITS | Clinical Summary ---
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
--- OUTSIDE RECORDS SUMMARY | 2025-08-01 14:44 | XMS_ITS | Clinical Summary ---
Author Organization [facility] Address [address] [place] [address] Care Team Providers Care Washing Machine Assembler Name Role Phone Rohith Brooks MD Primary Care Provider [phone] Source Comments [facility],non-owned Affiliates and Associated Physician Practices is amultiple site organization consisting of ambulatory clinics and hospital sitesin [place], [place], [place] and [place]. This disclosure is being madepursuant to the Care Everywhere program and may not contain all information available regarding this patient. 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
[2025-08-01 16:32] LABS: Prostate Specific Antigen 4.5 ng/mL (< OR = 4.0)
== END 2025-08-01 14:07 | disposition home or self-care (01) ==
PROVIDERS: PCP Family Medicine; Visit Provider Urology
DX: C61 Malignant neoplasm of prostate (principal)
CPT/HCPCS: 36415; 84153

== ENCOUNTER 2025-08-13 06:44 | Outpatient (CLI) | payer MEDICARE, OTHER, SELFPAY ==
--- OUTSIDE RECORDS SUMMARY | 2004-11-27 08:15 | XMS_ITS | Continuity of Care Document ---
Author Organization [facility] Address [address] [place] [address] [place] [address] Phone Care Team Providers Care Bioinformatics Team Member Name Role Phone Inderjit Pelletier Unavailable Unavailable Advance Directives Directive Yes / No Effective Date File Name No Information Encounters Encounter Description Practice Location Reason(s) For Visit Diagnoses Date Provider Providers Copied on Encounter [facility], [address] [place] [address] [address], [place], [place], [id number], [place] tel:[phone] [facility] No Information Prabhu Jansen. [address] [place], [address], [place]. tel:[phone] Referring Provider: Sydney Aden, [address] [place] [address], [facility]. tel:[phone] Family History Family Member Type Diagnosis Age At Onset No Information Payers Payer name Insurance type Covered republican ID Authoriza tion(s) No Information Social History Type Description Quantity Date Captured Comments Sex Male Smoking Status No Information Chief Complaint And Reason For Visit No Information Reason For Referral Reason For Referral No Information History Of Present Illness Encounter Date Complaint History Of Prese nt Illness No Information Functional Status Date Functional Assessmen t No Information Instructions Date Instruction Additional Infor mation No Information Assessments Type Assessment Date No Information Patient Care Teams Name Effective Dates (start - stop) Status Members No Information
--- OUTSIDE RECORDS SUMMARY | 2022-03-02 03:40 | XMS_ITS | Continuity of Care Document ---
Author Organization [facility] Address [address] [facility] [address] [place] [address] Phone Care Team Providers Care Internet Marketing Consultant Name Role Phone Randy Webber MD Unavailable [...] Providers Copied on Encounter OFFICE/OUTPAT IENT VISIT, [facility], [address] [facility] [address], [place], [place], [address], tel:[phone] Jihan [facility] Blurry Vision (chief complaint) Age-related nuclear cataract, bilateralSt argardt's disease Tejindercheryl Padilla. [address] [facility], [place], [place], [address] , . tel: [phone] Referring Provider: Randy Webber, [address] [facility], [place], [address] . tel:[phone] Family History Family Member Type Diagnosis Age At Onset Problem Family history of degenerati ve disorder of macula Payers Payer name Insurance type Covered libertarian ID Authoriza timaricarmen(s) [employer] Medicare MB [id number] Social History Type Description Quantity Date Captured [...] Radiology Order Ze iss [facility] HD-OCT GAL ([id number]), Sent on: Sent History Of Present Illness [...]
--- OUTSIDE RECORDS SUMMARY | 2025-08-13 06:47 | XMS_ITS | Clinical Summary ---
Author Organization [facility] Address [address] [place] [address] Phone Care Team Providers Care Director Of Claims Name Role Phone Rohith Brooks MD Primary Care Provider [phone] Allergies No known active allergies Medications amLODIPine [...] Health Maintenance Insurance MEDICARE RAILROAD Care Teams Director Of Claims Relationship Specialty Start Date End Date Rohith Brooks MD [address] [place] [address] [place] [phone] PCP - General Family Medicine 04/07/18
--- OUTSIDE RECORDS SUMMARY | 2025-08-13 06:47 | XMS_ITS | Encounter Summary ---
Author Organization [facility] Address [address] [place] [address] Care Team Providers Care Ems Educator Name Role Phone Rohith Brooks MD Primary Care Provider [phone] Encounter Details Date Type Department Care Team (Late st Contact Info) Description 01/31/2020 Lab Requisition 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 Received: 01/31/2020 07:49 AM Pathologist: [...] The specimen consists of a punch measuring [id number], bisected. Jar 0. 0 2:40 PM CDT [...] characteristic determined by the Dermatopathology Laboratory at [facility], directed by Dr. Mai Avila. These tests need not be, and therefore are not, approved by the [place] Food and Drug Administration. The tests are used for clinical purposes. Billing Codes Specimen Charges Stain Charges 39997 1 0 2:40 PM CDT DERMATOPATHOLOGY LABORATORY Embedded Images 0 2:40 PM CDT DERMATOPATHOLOGY LABORATORY Pathology/Cytolog y TISSUE SPECIMEN FROM SKIN / Unknown 01/30/2020 01/31/2020 7:49 AM CDT us Jenni Bell MD LAB - PATHOLOGY/CYTOLOGY ORD ERABLES Final Result DERMATOPATHOLOGY LABORATORY [facility] - Department of Dermatology [address] [place] [address], [address]th [place] [address], [facility] [phone] documented in this encounter Visit Diagnoses Not on filedocumented in this encounter Care Teams Ems Educator Relationship Specialty Start Date End Date Rohith Brooks MD PCP - General 04/15/18 documented as of this encounter
--- OUTSIDE RECORDS SUMMARY | 2025-08-13 06:47 | XMS_ITS | Clinical Summary ---
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
[2025-08-13 07:21] LABS: Hematocrit 31.9 % (42.0-52.0); Hemoglobin 9.6 g/dL (14.0-18.0); Immature Granulocyte Percent A 0.3 % (0-0.5); Immature Platelet Fraction Pct 3.0 % (0.9-11.2); Lymphocytes Absolute Auto 0.75 K/mm3 (0.9-3.2); Mean Corpuscular HGB Conc 30.1 g/dl (32-36); Mean Corpuscular Hemoglobin 26.7 pg (26-34); Mean Corpuscular Volume 88.9 fl (80-100); Nucleated Red Blood Cells Absolute Auto 0.000 K/mm3 (0.0-0.012); Nucleated Red Blood Cells Perc 0.0 % (0.0-0.2); Platelet Count Result 131 k/mm3 (150-375); Red Blood Count 3.59 M/mm3 (4.6-6.20); White Blood Count 3.4 K/mm3 (4.5-10.0)
== END 2025-08-13 06:45 | disposition home or self-care (01) ==
LOC: ANHLAB 06:45
PROVIDERS: PCP Family Medicine; Visit Provider Family Medicine
DX: D61.818 Other pancytopenia (principal)
CPT/HCPCS: 36415; 85025; 85055

== ENCOUNTER 2025-09-05 11:06 | Outpatient (CLI) | payer MEDICARE, OTHER, SELFPAY ==
[2025-09-05 11:27] LABS: Hematocrit 34.8 % (42.0-52.0); Hemoglobin 10.4 g/dL (14.0-18.0); Immature Granulocyte Percent A 0.2 % (0-0.5); Immature Platelet Fraction Pct 2.9 % (0.9-11.2); Lymphocytes Absolute Auto 0.76 K/mm3 (0.9-3.2); Mean Corpuscular HGB Conc 29.9 g/dl (32-36); Mean Corpuscular Hemoglobin 26.9 pg (26-34); Mean Corpuscular Volume 90.2 fl (80-100); Nucleated Red Blood Cells Absolute Auto 0.000 K/mm3 (0.0-0.012); Nucleated Red Blood Cells Perc 0.0 % (0.0-0.2); Platelet Count Result 151 k/mm3 (150-375); Red Blood Count 3.86 M/mm3 (4.6-6.20); White Blood Count 4.2 K/mm3 (4.5-10.0)
[2025-09-05 11:28] LABS: Schistocytes None Seen
[2025-09-05 11:34] LABS: Anisocytosis 1+; Hypochromasia 1+; Ovalocytes 1+
[2025-09-05 13:33] LABS: Iron 52 ug/dL (49-181)
[2025-09-05 13:38] LABS: Alanine Aminotransferase 13 U/L (6-50); Albumin Level 4.1 g/dL (3.5-5.1); Alkaline Phosphatase 65 U/L (38-126); Anion Gap 7 mmol/L (4-12); Aspartate Amino Transferase 22 U/L (17-59); Bilirubin,Total 0.6 mg/dL (0.2-1.3); Blood Urea Nitrogen 12 mg/dL (9-20); Calcium 8.8 mg/dL (8.4-10.2); Carbon Dioxide 29 mmol/L (22-30); Chloride 101 mmol/L (98-107); Estimated Glomerular Filt Rate > 60; Glucose 107 mg/dL (65-110); Potassium 4.5 mmol/L (3.4-5.0); Sodium 137 mmol/L (137-145); Total Protein 6.8 g/dL (6.3-8.2)
[2025-09-05 13:44] LABS: Percent Iron Saturation 12 % (20-50)
[2025-09-05 14:12] LABS: Ferritin 6.98 ng/mL (11.1-264)
[2025-09-05 14:48] LABS: Vitamin B12 243.0 pg/mL (239-931)
== END 2025-09-05 11:07 | disposition home or self-care (01) ==
LOC: ANHLAB 11:07
PROVIDERS: PCP Family Medicine; Visit Provider Internal Medicine Hematology & Oncology
DX: D64.9 Anemia, unspecified (principal)
CPT/HCPCS: 36415; 80053; 82607; 82728; 82746; 83540; 83550; 83615; 83921; 84238; 85025; 85055

== ENCOUNTER 2025-09-19 07:04 | Outpatient (CLI) | payer MEDICARE, OTHER, SELFPAY ==
--- OUTSIDE RECORDS SUMMARY | 2004-11-27 08:15 | XMS_ITS | Continuity of Care Document ---
Author Organization [facility] Address [address] [place] [address] [place] [address] Phone Care Team Providers Care Set Rider Name Role Phone Inderjit Pelletier Unavailable Unavailable Advance Directives Directive Yes / No Effective Date File Name No Information Encounters Encounter Description Practice Location Reason(s) For Visit Diagnoses Date Provider Providers Copied on Encounter [facility], [address] [place] [address] [address], [place], [place], [address], [place] tel:[phone] [facility] No Information Prabhu Jansen. [address] [place], [address], [place]. tel:[phone] Referring Provider: Sydney Aden, [address] [place] [address], [facility]. tel:[phone] Family History Family Member Type Diagnosis Age [...]
--- OUTSIDE RECORDS SUMMARY | 2022-03-02 03:40 | XMS_ITS | Continuity of Care Document ---
Author Organization [facility] Address [address] [facility] [address] [place] [address] Phone Care Team Providers Care Absorption And Adsorption Engineer Name Role Phone Randy Webber MD Unavailable [...] Providers Copied on Encounter OFFICE/OUTPAT IENT VISIT, [facility], [address] [facility] [address], [place], [place], [address], tel:[phone] Jihan [facility] Blurry Vision (chief complaint) Age-related nuclear cataract, bilateralSt argardt's disease Tejindercheryl Padilla. [address] [facility], [place], [place], [address] , . tel: [phone] Referring Provider: Randy Webber, [address] [facility], [place], [address] . tel:[phone] Family History Family Member Type Diagnosis Age At Onset Problem Family history of degenerati ve disorder of macula Payers Payer name Insurance type Covered constitution party ID Authoriza timaricarmen(s) [employer] Medicare MB [id number] Social History Type Description Quantity Date Captured [...] Radiology Order Ze iss [facility] HD-OCT GAL ([id number]), Sent on: Sent History Of Present Illness [...]
--- NOTE | ~2025-09-19 | US_ITS ---
Examination: US abdomen complete Clinical History: Chronic anemia . Comparison: PET CT 05/07/2025 Technique: Complete abdominal sonography Findings: Liver: Normal size. Normal echotexture. No intrahepatic biliary ductal dilatation. Normal hepatopedal flow main portal vein. Common duct: Normal caliber, 3 mm. Gallbladder: No stones. No wall thickening. No pericholecystic fluid. Spleen: Unremarkable. Pancreas: Unremarkable. Kidneys: 17 mm cyst right kidney. Mild bilateral probable pelviectasis. Aorta: No aneurysmal dilatation. Retrohepatic IVC: Unremarkable. IMPRESSION: 1. No acute findings. Reviewed, dictated and finalized at location R. IMPRESSION: 1. No acute findings.
--- OUTSIDE RECORDS SUMMARY | 2025-09-19 07:08 | XMS_ITS | Encounter Summary ---
Author Organization [facility] Address [address] [place] [address] Care Team Providers Care Buffing Wheel Former Machine Name Role Phone Unavailable Primary Care Provider Unavailabl e Encounter Details Date Type Department Care Team (Late Contact Info) Description 09/17/2025 Orders Only [facility]3] Oncology and Hematology [facility] [address] [place] [address] Jefry Soliz MD [address] [place] [address] [employer] [address] [place] [address] Social History Tobacco Use Types Packs/Day Years Used Date Smoking Tobacco: Never Smokeless Tobacco: Never Alcohol Use Standard Drinks/Week Comments Yes 0 (1 standard drink = 0.6 oz pur e alcohol) Socially Sex and Gender Information Value Date Recorded Sex Assigned at Not on file Legal Sex Male 11:08 AM CDT Gender Identity Not on file Sexual Orientation Not on file documented as of this encounter Plan of Treatment Upcoming Encounters Date Type Department Care Team (Late Contact Info) Description 09/26/2025 4:30 PM TOURIST AGENT Telephone Check Up [facility]3] Oncology [facility] Hematology [facility] [address] [place] [address] Jefry Soliz MD [address] [place] [address] [employer] [address] [place] [address] documented as of this encounter Procedures Procedure Name Priority Date/Time Associated Diagnosis Comments METHYLMALONIC ACID Routine 09/05/2025 1:03 PM CDT documented in this encounter Results * METHYLMALONIC ACID (09/05/2025 1:03 PM CDT) Blood us Jefry Soliz MD CHEMISTRY ORDERABLES Final Resu lt documented in this encounter Visit Diagnoses Not on filedocumented in this encounter
--- OUTSIDE RECORDS SUMMARY | 2025-09-19 07:08 | XMS_ITS | Clinical Summary ---
Author Organization [facility] Address [address] [place] [address] Care Team Providers Care Edi Analyst Name Role Phone Unavailable Primary Care Provider Unavailabl e Allergies No known active allergies Medications amLODIPine (NORVASC) 5 mg tablet Take 1 Tablet by mouth daily. 07/06/2025 Active lisinopriL (PRINIVIL) 20 mg tablet Take 1 Tablet by mouth 2 times daily. 07/22/2025 Active pantoprazole (PROTONIX) 40 mg Tablet, Delayed Release (E.C.) Take 1 Tablet by mouth daily. 08/28/2025 Active pravastatin (PRAVACHOL) 20 mg tablet Take 1 Tablet by mouth daily. 09/02/2025 Active Xarelto 20 mg Tablet Take 20 mg by mouth daily with supper. Active sotaloL (BETAPACE) 80 mg tablet Take 1 Tablet by mouth 2 times daily. 06/05/2025 Active tamsulosin (FLOMAX) 0.4 mg capsule Take 0.4 mg by mouth daily at bedtime. 07/22/2025 Active Active Problems No known active problems Encounters Date Type Department Care Team Description 09/17/2025 Orders Only [facility] Oncology and Hematology - [place] [address] [place] [address] Jefry Soliz MD 09/12/2025 External Device Data STL ABSTRACTION Provider, Abstract 09/12/2025 External Device Data STL ABSTRACTION Provider, Abstract 09/11/2025 External Device Data STL ABSTRACTION Provider, Abstract 09/11/2025 Orders Only [facility] Oncology and Hematology - [place] [address] [place] [address] Jefry Soliz MD 09/06/2025 Orders Only [facility] Oncology and Hematology - [place] [address] [place] [address] Jefry Soliz MD 09/05/2025 10:30 AM CDT Office Visit [facility] Oncology and Hematology - [place] [address] [place] [phone] Jefry Soliz MD Chronic anemia (Primary Dx) from Last 3 Months Family History Medical History Relation Name Comments Prostate Cancer Brother No Known Problems Child 1 No Known Problems Child 2 Cancer - Other Father bladder Heart Disease Father Prostate Cancer Father No Known Problems Mother Relation Name Status Comments Brother Alive Child 1 Alive Child 2 Alive Father Mother Social History Tobacco Use Types Packs/Day Years Used Date Smoking Tobacco: Never Smokeless Tobacco: Never Tobacco Cessation:Counseling Given: Not Answered Alcohol Use Standard Drinks/Week Comments Yes 0 (1 standard drink = 0.6 oz pur e alcohol) Socially Sex and Gender Information Value Date Recorded Sex Assigned at Not on file Legal Sex Male 11:08 AM CDT Gender Identity Not on file Sexual Orientation Not on file Last Filed Vital Signs Vital Sign Reading Time Taken Comments Blood Pressure 130/72 09/05/2025 10:16 AM CDT Pulse 50 09/05/2025 10:16 AM CDT Temperature 36.7 C (98.1 F) 09/05/2025 10:16 AM CDT Respiratory Rate 15 09/05/2025 10:16 AM CDT Oxygen Saturation 98% 09/05/2025 10:16 AM CDT Inhaled Oxygen Concentration - - Weight 91.7 kg (202 lb 3.2 oz) 09/05/2025 10:16 AM CDT Height 175.3 cm (5' 9) 09/05/2025 10:16 AM CDT Body Mass Index 29.86 09/05/2025 10:16 AM CDT Plan of Treatment Upcoming Encounters Date Type Department Care Team (Late st Contact Info) Description 09/26/2025 4:30 PM NUTRITION AND DIETETICS INSTRUCTOR Telephone Check Up [facility] Oncology and Hematology - [place] [address] [place] [address] Jefry Soliz MD [address] [facility] [address] [place] [address] Health Maintenance Due Date Last Done Comments DTAP/TDAP/TD VACCINES (1 - Tdap) 1971 FIT-DNA Q 3 years 1997 FIT/FOBT Q 1 year 1997 Flex Sig/CT Colonography Q 5 years 1997 PNEUMOCOCCAL VACCINE 50+ YEARS (1 of 1 - PCV) 10/27/20 02 ZOSTER VACCINE (1 of 2) 2002 INFLUENZA VACCINE (#1) 2025 RSV VACCINE (60+ or ) (1 - 1-dose 75+ series) 2027 COLORECTAL SCREENING 05/11/2028 05/11/2018 Colorectal Cancer Screening 05/11/2028 Procedures Procedure Name Priority Date/Time Associated Diagnosis Comments METHYLMALONIC ACID Routine 09/05/2025 1: 03 PM CDT CHG SOLUBLE TRANSFERRIN RECEPTOR Routine 09/05/2025 12:44 PM CDT COMPREHENSIVE METABOLIC PANEL Routine 09/05/2025 12:33 PM CDT COMPREHENSIVE METABOLIC PANEL Routine 09/05/2025 11:47 AM CDT from Last 3 Months Results * METHYLMALONIC ACID (09/05/2025 1:03 PM CDT) Blood us Jefry Soliz MD CHEMISTRY ORDERABLES Final Resu lt * CHG SOLUBLE TRANSFERRIN RECEPTOR (09/05/2025 12:44 PM CDT) us Jefry Soliz MD [facility] - LABORATORY Final Result * COMPREHENSIVE METABOLIC PANEL (09/05/2025 12:33 PM CDT) Only the most recent of2 resultswithin the time period is included. Blood us Jefry Soliz MD CHEMISTRY ORDERABLES Final Resu lt from Last 3 Months Insurance MEDICARE RAILROAD [facility] OPTIONS PPO [id number]
--- OUTSIDE RECORDS SUMMARY | 2025-09-19 07:08 | XMS_ITS | Clinical Summary ---
Author Organization [facility] Address [address] [facility] [place] [address] Care Team Providers Care Chain Builder Name Role Phone Rohith Brooks MD Primary Care Provider [phone] Source Comments [facility],non-owned Affiliates and Associated Physician Practices is amultiple site organization consisting of ambulatory clinics and hospital sitesin [place], [place], [place] and [place]. This disclosure is being madepursuant to the Care Everywhere program and may not contain all information available regarding this patient. 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
--- OUTSIDE RECORDS SUMMARY | 2025-09-19 07:09 | XMS_ITS | Clinical Summary ---
Author Organization [facility] Address [address] [place] [address] Phone Care Team Providers Care Shredder Picker Name Role Phone Rohith Brooks MD Primary Care Provider [phone] Allergies No known active allergies Medications amLODIPine [...] 1997 Zoster Immunization (1 of 2) 2002 Medicare Initial AWV [id number] 07/22/2010 Pneumococcal Immunization (50+ years) (2 of 2 - PCV20 or PCV21) 04/07/2020 04/07/2019 Colonoscopy 05/11/2023 05/11/2018 Colorectal Cancer Screening 05/11/2023 Influenza Immunization (#1) 2025 092 06/2020, 10/09/2019, 10/07/2018, Additional history exists SARS-COV-2 Immunization ( season) 2025 09/26/2021, 02/09/2021, 01/19/2021 Respiratory Syncytial Virus (RSV) [...] Health Maintenance Results * COLONOSCOPY (05/11/2018) Jeronimo Feliz Gonzálesjohn DO PROCEDURE/MINOR SURGICAL ORDERA BLES Final Result from Last 3 Months or Most Recently Relevant to Health Maintenance Insurance MEDICARE RAILROAD Care Teams Shredder Picker Relationship Specialty Start Date End Date Rohith Brooks MD [address] [place] [address] [place] [id number] PCP - General Family Medicine 04/07/18
--- OUTSIDE RECORDS SUMMARY | 2025-09-19 07:09 | XMS_ITS | Clinical Summary ---
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 Gender Identity Not on file Sexual Orientation Not on file Plan of Treatment Health Maintenance Due Date Last Done Comments Colorectal Cancer Screening Colonoscopy (10 Years) 1952 Hepatitis C 1970 DTaP, Tdap and Td Vaccines ( 1 - Tdap) 1971 Zoster Vaccines (1 of 2) 2002 Annual Medicare Wellness Visit 2017 Pneumococcal Vaccine: 50+ Ye ars (2 of 2 - PCV20 or PCV21) 04/07/2020 04/07/2019 COVID-19 Vaccine ( - 2024-2 6 season) 2025 Influenza Adult (#1) 2025 RSV Immunization or 60+ Years (1 - 1-dose 75+ series) 2027 Hepatitis A Vaccines Aged Out No long er eligible based on patient's age to complete this topic Meningococcal B Vaccine Aged Out No l onger eligible based on patient's age to complete this topic Meningococcal Vaccine Aged Out No janak job eligible based on patient's age to complete this topic RSV Immunizations Under 20 Months Aged Out No longer eligible based on patient's age to complete this topic Insurance [place] [address] [facility] Care Teams Crossband Layer Relationship Specialty Start Date End Date Rohith Brooks MD [address] [place] [address] [place] [phone] PCP - General FAMILY PRACTICE 01/01/21
--- OUTSIDE RECORDS SUMMARY | 2025-09-19 07:09 | XMS_ITS | Encounter Summary ---
Author Organization [facility] Address [address] [facility] [place] [address] Care Team Providers Care Student Financial Aid Manager Name Role Phone Rohith Brooks MD Primary Care Provider [phone] Encounter Details Date Type Department Care Team (Late st Contact Info) Description 01/31/2020 Lab Requisition [facility] [address] 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 Gender Identity Not on file Sexual Orientation Not on file documented as of this encounter Plan of Treatment Not on file documented as of this encounter Procedures Procedure Name Priority Date/Time Associated Diagnosis Comments DERMATOPATHOLOGY Routine 01/30/2020 12:0 0 AM CDT documented in this encounter Results * DERMATOPATHOLOGY (01/30/2020 12:00 AM CDT) Case Report Dermatopathology Report Case: [id number] Authorizing Provider: Jenni Bell MD Collected: 01/30/2020 12:00 AM Ordering Location: [facility] Received: 01/31/2020 07:49 AM Pathologist: [...] The specimen consists of a punch measuring [id number], bisected. Jar 0. 0 2:40 PM CDT [...] determined by the Dermatopathology Laboratory at [facility], directed by Dr. Mai Avila. These tests need not be, and therefore are not, approved by the [place] Food and Drug Administration. The tests are used for clinical purposes. Billing Codes Specimen Charges Stain Charges 36816 1 0 2:40 PM CDT DERMATOPATHOLOGY LABORATORY Embedded Images 0 2:40 PM CDT DERMATOPATHOLOGY LABORATORY Pathology/Cytolog y TISSUE SPECIMEN FROM SKIN / Unknown 01/30/2020 01/31/2020 7:49 AM CDT us Jenni Bell MD LAB - PATHOLOGY/CYTOLOGY ORD ERABLES Final Result DERMATOPATHOLOGY LABORATORY [facility] - Department of Dermatology [address] [place] [address], 5th [place] [address], [place] [phone] documented in this encounter Visit Diagnoses Not on filedocumented in this encounter Care Teams Student Financial Aid Manager Relationship Specialty Start Date End Date Rohith Brooks MD PCP - General 04/15/18 documented as of this encounter
== END 2025-09-19 07:05 | disposition home or self-care (01) ==
PROVIDERS: PCP Family Medicine; Visit Provider Internal Medicine Hematology & Oncology
DX: D64.9 Anemia, unspecified (principal)
CPT/HCPCS: 76700

== ENCOUNTER 2025-11-02 07:31 | Outpatient (CLI) | payer MEDICARE, OTHER, SELFPAY ==
[2025-11-02 08:09] LABS: Hematocrit 36.2 % (42.0-52.0); Hemoglobin 11.2 g/dL (14.0-18.0); Immature Granulocyte Percent A 0.2 % (0-0.5); Immature Platelet Fraction Pct 2.4 % (0.9-11.2); Lymphocytes Absolute Auto 0.76 K/mm3 (0.9-3.2); Mean Corpuscular HGB Conc 30.9 g/dl (32-36); Mean Corpuscular Hemoglobin 29.1 pg (26-34); Mean Corpuscular Volume 94.0 fl (80-100); Nucleated Red Blood Cells Absolute Auto 0.000 K/mm3 (0.0-0.012); Nucleated Red Blood Cells Perc 0.0 % (0.0-0.2); Platelet Count Result 138 k/mm3 (150-375); Red Blood Count 3.85 M/mm3 (4.6-6.20); White Blood Count 4.0 K/mm3 (4.5-10.0)
[2025-11-02 08:30] LABS: Alanine Aminotransferase 14 U/L (6-50); Albumin Level 3.8 g/dL (3.5-5.1); Alkaline Phosphatase 57 U/L (38-126); Anion Gap 2 mmol/L (4-12); Aspartate Amino Transferase 22 U/L (17-59); Bilirubin,Total 0.6 mg/dL (0.2-1.3); Blood Urea Nitrogen 13 mg/dL (9-20); Calcium 8.8 mg/dL (8.4-10.2); Carbon Dioxide 28 mmol/L (22-30); Chloride 105 mmol/L (98-107); Cholesterol 144 mg/dL (0-200); Estimated Glomerular Filt Rate > 60; Glucose 100 mg/dL (65-110); HDL Direct 42 mg/dL; Potassium 4.1 mmol/L (3.4-5.0); Sodium 135 mmol/L (137-145); Total Protein 6.2 g/dL (6.3-8.2); Triglycerides 74 mg/dL (<150)
== END 2025-11-02 07:32 | disposition home or self-care (01) ==
PROVIDERS: PCP Family Medicine; Referring Provider Urology; Visit Provider Family Medicine
DX: I10 Essential (primary) hypertension (principal); E78.00 Pure hypercholesterolemia, unspecified; D61.818 Other pancytopenia; C61 Malignant neoplasm of prostate
CPT/HCPCS: 36415; 80053; 80061; 85025; 85055

== ENCOUNTER 2025-11-13 14:59 | Outpatient (CLI) | payer MEDICARE, OTHER, SELFPAY ==
--- OUTSIDE RECORDS SUMMARY | 2025-11-13 15:04 | XMS_ITS | Clinical Summary ---
Author Organization [facility] Address [address] [place] [address] Care Team Providers Care Parking Inspector Name Role Phone Unavailable Primary Care Provider [...] Encounters Date Type Department Care Team Description 11/06/2025 External Device Data STL ABSTRACTION Provider, Abstract 09/26/2025 4:30 PM PEDIATRIC CARE COORDINATOR Telephone Check Up [facility] Oncology and Hematology - [place] [address] [place] [address] Jefry Soliz MD Chronic anemia (Primary Dx) 09/19/2025 Orders Only [facility] Oncology and Hematology - [place] [address] [place] [address] Jefry Soliz MD 09/17/2025 Orders Only [facility] Oncology and Hematology - [place] [address] [place] [address] Jefry Soliz MD 09/12/2025 External Device Data STL ABSTRACTION Provider, Abstract 09/12/2025 External Device Data STL ABSTRACTION Provider, Abstract 09/11/2025 External Device Data STL ABSTRACTION Provider, Abstract 09/11/2025 Orders Only [facility] Oncology and Hematology - [place] [address] [place] [address] Jefry Soliz MD 09/06/2025 Orders Only [facility] Oncology and Hematology - [place] [address] [place] [address] Jefry Soliz MD 09/05/2025 10:30 AM CDT Office Visit [facility] Oncology and Hematology - [place] [address] [place] [address] Jefry Soliz MD Chronic anemia (Primary Dx) [...] Care Team (Late st Contact Info) Description 01/02/2026 2:00 PM PEDIATRIC CARE COORDINATOR Office Visit [facility] Oncology and Hematology - [place] [address] [facility] [address] [place] [address] Jefry Soliz MD [address] [facility] [address] [place] [address] Health Maintenance Due Date Last [...] Procedure Name Priority Date/Time Associated Diagnosis Comments US ABDOMEN COMPLETE Routine 09/19/2025 1 0:13 AM CDT METHYLMALONIC ACID Routine 09/05/2025 1: 03 PM CDT CHG SOLUBLE TRANSFERRIN RECEPTOR Routine 09/05/2025 12:44 PM CDT COMPREHENSIVE METABOLIC PANEL Routine 09/05/2025 12:33 PM CDT COMPREHENSIVE METABOLIC PANEL Routine 09/05/2025 11:47 AM CDT from Last 3 Months Results * US ABDOMEN COMPLETE (09/19/2025 10:13 AM CDT) Anatomical Region Laterality Modality Abdomen Ultrasound us Jefry Soliz MD US ORDERABLES Final Result * METHYLMALONIC ACID (09/05/2025 1:03 PM CDT) Blood Jefry Soliz MD CHEMISTRY ORDERABLES Final Resu lt * CHG SOLUBLE TRANSFERRIN RECEPTOR (09/05/2025 12:44 PM CDT) Jefry Soliz MD [facility] - LABORATORY Final Result * COMPREHENSIVE METABOLIC PANEL (09/05/2025 12:33 PM CDT) Only the most recent of2 resultswithin the time period is included. Blood us Jefry Soliz MD CHEMISTRY ORDERABLES Final Resu lt from Last 3 Months Insurance MEDICARE [employer] [facility] OPTIONS PPO [id number]
--- OUTSIDE RECORDS SUMMARY | 2025-11-13 15:04 | XMS_ITS | Encounter Summary ---
Author Organization [facility] Address [address] [place] [address] Care Team Providers Care Design Cell Engineer Name Role Phone Rohith Brooks MD Primary Care Provider [phone] Encounter Details Date Type Department Care Team (Late st Contact Info) Description 01/31/2020 Lab Requisition 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 Lab Received: 01/31/2020 07:49 AM Pathologist: rAt Avila MD Specimen: Skin, right cheek 0 [...] The specimen consists of a punch measuring [id number], bisected. Jar 0. 0 2:40 PM CDT [...] characteristic determined by the Dermatopathology Laboratory at [facility], directed by Dr. Mai Avila. These tests need not be, and therefore are not, approved by the [place] Food and Drug Administration. The tests are used for clinical purposes. Billing Codes Specimen Charges Stain Charges 43190 1 0 2:40 PM CDT DERMATOPATHOLOGY LABORATORY Embedded Images 0 2:40 PM CDT DERMATOPATHOLOGY LABORATORY Pathology/Cytolog y TISSUE SPECIMEN FROM SKIN / Unknown 01/30/2020 01/31/2020 7:49 AM CDT us Jenni Bell MD LAB - PATHOLOGY/CYTOLOGY ORD ERABLES Final Result DERMATOPATHOLOGY LABORATORY [facility] - Department of Dermatology [address] [place] [address], [address] [place] [address], [place] [phone] documented in this encounter Visit Diagnoses Not on filedocumented in this encounter Care Teams Design Cell Engineer Relationship Specialty Start Date End Date Rohith Brooks MD PCP - General 04/15/18 documented as of this encounter
--- OUTSIDE RECORDS SUMMARY | 2025-11-13 15:04 | XMS_ITS | Clinical Summary ---
Author Organization [facility] Address [address] [place] [address] Care Team Providers Care Bushel Girl Name Role Phone Rohith Brooks MD Primary Care Provider [phone] Source Comments [facility],non-owned Affiliates and Associated Physician Practices is amultiple site organization consisting of ambulatory clinics and hospital sitesin [place], [place], [place] and [place]. This disclosure is being madepursuant to the Care Everywhere program and may not contain all information available regarding this patient. 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
--- OUTSIDE RECORDS SUMMARY | 2025-11-13 15:04 | XMS_ITS | Clinical Summary ---
Author Organization [facility] Address [address] [place] [address] Phone Care Team Providers Care Floorworker Name Role Phone Rohith Brooks MD Primary Care Provider [phone] Allergies No known active allergies Medications amLODIPine [...] Health Maintenance Insurance MEDICARE [employer] Care Teams Floorworker Relationship Specialty Start Date End Date Rohith Brooks MD [address] [place] [address] [place] [id number] PCP - General Family Medicine 04/07/18
--- OUTSIDE RECORDS SUMMARY | 2025-11-13 15:04 | XMS_ITS | Clinical Summary ---
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
[2025-11-13 16:00] LABS: Prostate Specific Antigen 7.1 ng/mL (< OR = 4.0)
== END 2025-11-13 15:00 | disposition home or self-care (01) ==
PROVIDERS: PCP Family Medicine; Visit Provider Urology
DX: C61 Malignant neoplasm of prostate (principal)
CPT/HCPCS: 36415; 84153